=== PATIENT | female | born 1955 | race Caucasian/White ===

== ENCOUNTER 2019-10-21 13:12 | Emergency (ER) | payer OTHER, SELFPAY ==
[2019-10-21] VITALS (36 sets, daily range): BP systolic 132–174; BP diastolic 77–121; PULSE 58–101; RESP 13–22; TEMP 36.5; O2SAT 95–100
--- NOTE | 2019-10-21 13:43 | W.ED.GENAD ---
Discharge Plan Disposition Patient Disposition: HOME Condition: Stable Discharge Details Chief Complaint: Seizure Clinical Impression: Near syncope Primary Care Provider: Jazmyne Nowak ED Provider: Fernando Mcgill Home Meds and New Rx's Prescriptions: Continued melatonin 1 MG tablet 1 mg PO HS PRN PRNRF: 0 Discharge Instructions Instructions: Near Syncope (ED) Additional Instructions: Please wear Holter monitor as instructed by respiratory therapy. We have asked care management to arrange an outpatient follow-up for you in primary care clinic. As you discussed, you were offered admission to the hospital this evening, you may return at any time for reevaluation. Please do return should you develop chest pain, difficulty breathing, or any other acute concerns. Home to rest this evening. Medical Decision Making Pleasant and delightful 63-year-old female presents with her son. They they were visiting a family member the past 2 days. This morning after breakfast, the patient was noted to be making snoring sounds, turned red in the face, become briefly unresponsive for approximately 15 seconds with a slight tremulous shaking of both hands. There was no tonic-clonic motor activity, the patient did not turn blue, slumped, or fall to the floor. She awoke with slight nausea and mild diaphoresis. She did vomit once. Upon arrival her blood pressure is 165/96, pulse 77, vital signs otherwise normal. Neurologic exam is normal and without focal deficit. Differential diagnosis includes dehydration, vagal episode, arrhythmia, acute coronary syndrome. She is improved and I do not find any evidence of central neurologic dysfunction. Patient had IV access established, was placed on a monitor worker, received a fluid bolus, referred for chest x-ray, EKG, laboratory testing. Patient's diagnostic studies reveal an unremarkable CBC, chemistries with discrete anion gap of 12.9 but otherwise unremarkable, negative troponin, normal TSH. Repeat troponin obtained and negative Discussed and offered admission with the patient which she wishes to avoid. Therefore, I will place her on a 48-hour Holter monitor. We will ask care management to arrange an outpatient follow-up for her in clinic with Kimmy Weeks or Jazmyne Nowak. Patient understands indications to return for repeat evaluation. Lab Data Lab results reviewed: Yes I reviewed the patient's lab results. Labs: Laboratory Results - last 24 hr 10/21/19 10/21/19 10/21/19 13:20 13:20 14:06 WBC 9.10 RBC 4.90 Hgb 15.5 Hct 45.1 MCV 92.0 MCH 31.6 MCHC 34.4 RDW 13.0 Plt Count 249 MPV 10.0 Immature Gran % 0.1 Neutrophils % 78.0 Lymphocytes % 15.7 Monocytes % 5.8 Eosinophils % 0.3 Basophils % 0.1 Absolute Neutrophils 7.09 H Absolute Lymphocytes 1.43 Absolute Monocytes 0.53 Absolute Eosinophils 0.03 Absolute Basophils 0.01 Sodium Cancelled 143 Potassium Cancelled 4.2 Chloride Cancelled 105 Carbon Dioxide Cancelled 25.1 Anion Gap Cancelled 12.9 H BUN Cancelled 15 Creatinine Cancelled 0.68 Estimated GFR/1.73 m2 Cancelled >= 60.00 Glucose Cancelled 109 H Calcium Cancelled 9.0 Magnesium Cancelled 1.8 Total Bilirubin Cancelled 0.6 AST Cancelled 18 ALT Cancelled 37 Alkaline Phosphatase Cancelled 80 Troponin I Cancelled < 0.05 Total Protein Cancelled 7.4 Albumin Cancelled 3.9 TSH Cancelled 0.65 ECG Data Attestation: I personally reviewed and interpreted this ECG (s) as follows: Interpretation: Normal sinus rhythm, the QRS is narrow, the rate is 63, there is nonspecific ST segment changes in lead III, ectopic beats noted, no ST segment elevation. Repeat EKG at 1637 hrs. reveals normal sinus rhythm, rate of 67, QRS narrow, no ST segment elevation. HPI General Mode of arrival: ambulatory. Date/Time Provider Initiated Documentation: 10/21/19 13:15. Limitations to Documentation: no limitations. Information obtained by: patient and family. History of Present Illness 63 year old F presents to the emergency department with the chief complaint of Syncopal event, described as moderate and similar to prior episodes, Quality is described as other (States she feels normal), Patient started experiencing this hour(s) and it has been now resolved. No relieving factors improve symptom(s), No exacerbating factors reported . Patient notes loss of appetite and other (Vomited x1); denies chest pain, shortness of breath and weakness. Patient did receive the following treatments prior to arrival, none Related Data Home Medications Medication Instructions Recorded Confirmed melatonin 1 mg PO HS PRN PRN 01/09/17 10/21/19 Allergies Allergy/AdvReac Type Severity Reaction Status Date / Time Wasp Sting Allergy Severe Anaphylaxis Uncoded 10/21/19 13:24 General Stated Complaint: Seizure NELLI: 2 Review of Systems Narrative: Similar episode this past summer. Denies chest pain, palpitations, shortness of breath, lower extremity pain or swelling. No prolonged immobilization or travel. 8 systems reviewed and otherwise negative. 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 Pleasant, well groomed, interactive. HEAD: Normocephalic, atraumatic ENT: Mucous membranes moist, oropharynx unremarkable, External ear exam unremarkable EYES: PERRL, EOMI NECK: Full ROM, no DOMO, no menigismus CHEST/RESP: Nontender, clear to auscultation bilateral, no wheeze/rhonchi/rales CARDIOVASCULAR: RRR, no murmur, rub morgan. 2+ Rad pulse bilateral ABDOMEN: Soft, nontender, no mass. +Bowel sounds EXT: Full ROM, no edema, no rash Neuro: Grossly normal neurologic exam, conversant, interactive. Cranial nerves II through XII intact, [id number] intact, visual moeller intact to confrontation. Psych: Speech fluent, thoughts congruent, affect normal Course Vital Signs Vital signs: Vital Signs Temperature 36.5 C 10/21/19 13:12 Pulse 77 10/21/19 13:12 Respiratory Rate 16 10/21/19 13:12 Blood Pressure 165/96 H 10/21/19 13:12 Pulse Oximetry 100 10/21/19 13:12 Temperature 36.5 C 10/21/19 13:12 Temperature Source Skin 10/21/19 13:12 Pulse 77 10/21/19 13:12 Respiratory Rate 16 10/21/19 13:12 Respiratory Effort 10/21/19 13:24 Blood Pressure 165/96 H 10/21/19 13:12 Pulse Oximetry 100 10/21/19 13:12 Oxygen Delivery Method Room Air 10/21/19 13:12 Oxygen Flow Rate 0 10/21/19 13:12 Pain Level 0 10/21/19 13:12
[2019-10-21 13:54] LABS: Abs Immature Grans 0.01 k/cumm (0.0-0.09); Absolute Basophil Count 0.01 k/cumm (0.0-0.2); Absolute Eosinophil Count 0.03 k/cumm (0.0-0.7); Absolute Lymphocyte Count 1.43 k/cumm (1.2-3.4); Absolute Monocyte Count 0.53 k/cumm (0.11-0.7); Absolute Neutrophil Count 7.09 k/cumm (1.2-6.7); Basophils % 0.1; Eosinophils % 0.3; HCT 45.1 % (36.0-46.0); HGB 15.5 g/dL (12.0-15.5); Immature Grans % 0.1; Lymphocytes % 15.7; Mean Corp. HGB Concentration 34.4 g/dL (32.0-36.0); Mean Corpuscular Hemoglobin 31.6 pg (27.0-33.0); Monocytes % 5.8; Platelet Count 249 x1000/uL (130-400)
[2019-10-21] MEDS: Normal Saline 1,000 ML 1000 ML IV (13:54)
--- NOTE | 2019-10-21 14:20 | DI.CT_ITS ---
EXAM: CT HEAD WO CLINICAL HISTORY: syncope TECHNIQUE: NONCONTRAST COMPARISON: No exams were available for comparison FINDINGS: The ventricles and sulci are consistent with the patient's age. No acute intracranial hemorrhage, mi dline shift or mass effect is present. The ventricles are intact. The basilar cisterns are patent. The calvarium is intact. There is mucosal thickening in the maxillary sinuses, left greater than ri ght. The remaining visualized paranasal sinuses are clear. The mastoid air cells are well pneumatiz ed. IMPRESSION: No acute intracranial process. The findings were discussed with the Emergency Department on the date of the examination.
--- NOTE | 2019-10-21 14:27 | DI.RAD_ITS ---
EXAM: XR CHEST 2V PA LATERAL CLINICAL HISTORY: syncope. TECHNIQUE: 2D digital imaging was performed. COMPARISON: No exams were available for comparison FINDINGS: LUNGS: Clear. No pleural abnormality seen. HEART: Normal. MEDIASTINUM: Normal. OTHER FINDINGS:Normal. IMPRESSION: No acute pulmonary findings.
[2019-10-21 14:36] LABS: ALT 37 U/L (14-59); AST 18 U/L (15-37); Albumin 3.9 g/dL (3.4-5.0); Alkaline Phosphatase 80 U/L (46-116); Anion Gap 12.9 mmol/L (3-11); BUN 15 mg/dL (7-18); Bilirubin, Total 0.6 mg/dL (0.2-1.0); CO2 25.1 mmol/L (21.0-32.0); CREATININE 0.68 mg/dL (0.55-1.02); Chloride 105 mmol/L (98-107); Glucose 109 mg/dL (74-106); Magnesium 1.8 mg/dL (1.8-2.4); Potassium 4.2 mmol/L (3.5-5.1); Sodium 143 mmol/L (136-145); TSH 0.65 uIU/mL (0.36-3.74); Total Protein 7.4 g/dL (6.4-8.2)
[2019-10-21 14:39] LABS: Troponin I < 0.05 ng/Ml (<0.06)
[2019-10-21 16:52] LABS: Troponin I < 0.05 ng/Ml (<0.06)
--- NOTE | 2019-10-21 16:59 | NUR.NOTE ---
Referral faxed to [facility], Jazmyne Nowak.Nursing Note:
== END 2019-10-21 17:15 | disposition home or self-care (01) ==
PROVIDERS: Emergency Provider Emergency Medicine; PCP Nurse Practitioner
DX: R55 Syncope and collapse (principal); R11.2 Nausea with vomiting, unspecified
CPT/HCPCS: 36415; 36416; 80053; 82962; 93005; 96360; 96361; 99284; 70450; 71046; 83735; 84443; 84484; 85025; 93010; 93225

== ENCOUNTER 2019-10-22 11:18 | Inpatient (IN) | payer OTHER, SELFPAY ==
[2019-10-22] VITALS (23 sets, daily range): BP systolic 118–161; BP diastolic 57–102; PULSE 74–100; RESP 12–24; TEMP 36.5–37; O2SAT 96–99
[2019-10-22 12:30] LABS: Abs Immature Grans 0.01 k/cumm (0.0-0.09); Absolute Basophil Count 0.01 k/cumm (0.0-0.2); Absolute Eosinophil Count 0.04 k/cumm (0.0-0.7); Absolute Lymphocyte Count 1.47 k/cumm (1.2-3.4); Absolute Monocyte Count 0.69 k/cumm (0.11-0.7); Absolute Neutrophil Count 5.38 k/cumm (1.2-6.7); Basophils % 0.1; Eosinophils % 0.5; HCT 40.2 % (36.0-46.0); HGB 13.6 g/dL (12.0-15.5); Immature Grans % 0.1; Lymphocytes % 19.3; Mean Corp. HGB Concentration 33.8 g/dL (32.0-36.0); Mean Corpuscular Hemoglobin 31.1 pg (27.0-33.0); Mean Platelet Volume 9.8 fL (8.0-11.0); Monocytes % 9.1; Neutrophils % 70.9; Platelet Count 251 x1000/uL (130-400); RBC 4.37 m/cumm (4.00-5.20); RBC Distribution Width 12.8 % (11.7-14.6)
[2019-10-22] MEDS: Normal Saline 1,000 ML 1000 ML IV (12:33)
[2019-10-22 12:44] LABS: Bilirubin Negative (Negative); Blood Negative (Negative); Clarity Clear (Clear); Glucose Negative (Negative); Ketones Negative (Negative); Leukocyte Esterase Trace (Negative); Nitrite Negative (Negative); Urobilinogen 0.2 EU/dL (Up TO 0.2); pH 5.5 (5-8)
[2019-10-22 12:46] LABS: ALT 40 U/L (14-59); AST 20 U/L (15-37); Alkaline Phosphatase 78 U/L (46-116); Anion Gap 12.1 mmol/L (3-11); BUN 18 mg/dL (7-18); Bilirubin, Total 0.5 mg/dL (0.2-1.0); CO2 23.9 mmol/L (21.0-32.0); CREATININE 0.83 mg/dL (0.55-1.02); Calcium 9.1 mg/dL (8.5-10.1); Chloride 106 mmol/L (98-107); Glucose 113 mg/dL (74-106); Potassium 3.6 mmol/L (3.5-5.1); Sodium 142 mmol/L (136-145); Total Protein 7.3 g/dL (6.4-8.2)
[2019-10-22 12:47] LABS: Troponin I < 0.05 ng/Ml (<0.06)
[2019-10-22 12:55] LABS: Bacteria Few HPF (Negative); Crystals Negative HPF (Negative); Epithelial Cells Moderate HPF (Negative); RBC Negative HPF (0-2)
[2019-10-22 12:56] LABS: C & S Indicated? No/Sq. Contamination; Casts Negative LPF (Negative); Mucus Moderate (Negative)
--- NOTE | 2019-10-22 12:56 | DI.RAD_ITS ---
EXAM: XR CHEST 2V PA LATERAL XR CHEST 2V PA LATERAL CLINICAL HISTORY: syncope syncope TECHNIQUE: 2D digital imaging was performed. COMPARISON: XR CHEST 2V PA LATERAL from 10/21/2019 FINDINGS: The heart is not enlarged. The lungs are clear and well expanded. No pleural effusion seen. Mediastin al contours appear intact. IMPRESSION: Normal chest
--- NOTE | 2019-10-22 14:35 | W.HOLTRPT ---
Date of service: 10/22/19 Time of Service: 14:36 Holter Monitor Report Holter Monitor Note: The patient was monitored for 19 hours and 39 minutes Rhythm throughout was sinus. Average heart rate was 107 bpm Minimum heart rate was 72 and maximum 148 Heart rate during sleep averaged in the 80s Heart rate while awake ranged from 110-135 There were no atrial or ventricular dysrhythmias There were no bradycardia dysrhythmias or pauses
[2019-10-22 15:24] LABS: Troponin I < 0.05 ng/Ml (<0.06)
[2019-10-22 15:32] LABS: D-Dimer 589 ng/mlFEU (<500)
--- NOTE | 2019-10-22 17:59 | HPE_ITS ---
Date of service: 10/22/19 Time of Service: 18:02 Assessment and Plan Assessment and plan (1) Syncope: Status: Chronic Assessment and plan: Of unclear etiology. Yesterday while sitting, today while standing with sensation of nausea preceding. Tropoinin negative x2, third pending. TSH normal yesterday. Monitor on telemetry, echo ordered (will not be available over weekend), consider stress testing. PPI initiated. Reassess electrolytes tomorrow morning, Hgb A1c pending, lipid panel pending. (2) DVT prophylaxis: Status: Acute Assessment and plan: Subcutaneous heparin. (3) Discharge planning issues: Status: Acute Assessment and plan: She is a DNR/DNI. This case was discussed with Dr. Aldrich who is in agreement. History of Present Illness History of Present Illness Chief Complaint: Syncope Narrative: Alexia Borges is a very pleasant 63 year old female with a past medical history of osteoarthritis, varicose veins and one syncopal episode in 09/2018. She presented to the ED yesterday after she experienced a syncopal episode while sitting at her brother's house. She had her son drive her back to [facility] to the ED at that time. She vomited x1 during the ride to the ED. She was evaluated in the ED and had a CT head which was negative. She was offered admission, but chose to discharge home. She went back to her usual activities and presented to work this morning. She ate breakfast, drank plenty of water and was standing outside at [facility] when she suddenly felt like she needed to sit down and again experienced a syncopal episode. Both times, she was out for seconds, and awoke completely aware of her surroundings. There was no postictal state, no loss of urine, feces or tongue biting. She was wearing a holter monitor today as she was discharged with cardiac monitoring from the ED yesterday. The Holter report states that she was in NSR with rates 72 to a maximum of 148 bpm. It is not clear what her rate was when she passed out.. In the ED today, her labs were unremarkable. Her vital signs were unremarkable. Her chest x-ray was normal. Her troponin was negative x2, third troponin is pending. She is admitted to the [facility] floor for further observation and management. At the time of her admission, she denies any dizziness, presyncopal sensation, headaches, nausea, vomiting or diarrhea. She denies shortness of breath. She has had a dry cough this fall, no wheezing, chest pain/pressure. She has had intermittent palpitations long-term, no recent changes. She denies calf swelling or tenderness, lower extremity edema. She has been eating and drinking normally. No problems with bowel or bladder functioning. She smokes marijuana, 2 bowls per day, she drinks 2-4 alcoholic beverages per week. 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 Pleasant and cooperative, talkative. HEENT: normocephalic, atraumatic, pupils equal and round, EOMI, mucous membranes moist. Neck: supple, no JVD. Cardiovascular: heart has regular rate and rhythm, nontachycardic, no murmur appreciated. Respiratory: respirations even and unlabored, lung sounds clear bilaterally. Abdomen: normoactive bowel sounds, abdomen soft, nontender, nondistended. Extremities: no clubbing, cyanosis or edema. No calf swelling or tenderness. Results Labs Result diagrams: 10/22/19 11:47 10/22/19 11:47 Labs: Laboratory Results - last 24 hr 10/22/19 10/22/19 10/22/19 11:47 11:47 11:47 WBC 7.60 RBC 4.37 Hgb 13.6 Hct 40.2 MCV 92.0 MCH 31.1 MCHC 33.8 RDW 12.8 Plt Count 251 MPV 9.8 Immature Gran % 0.1 Neutrophils % 70.9 Lymphocytes % 19.3 Monocytes % 9.1 Eosinophils % 0.5 Basophils % 0.1 Absolute Neutrophils 5.38 Absolute Lymphocytes 1.47 Absolute Monocytes 0.69 Absolute Eosinophils 0.04 Absolute Basophils 0.01 D-Dimer 589 H Sodium 142 Potassium 3.6 Chloride 106 Carbon Dioxide 23.9 Anion Gap 12.1 H BUN 18 Creatinine 0.83 Estimated GFR/1.73 m2 >= 60.00 Glucose 113 H Calcium 9.1 Total Bilirubin 0.5 AST 20 ALT 40 Alkaline Phosphatase 78 Troponin I < 0.05 Total Protein 7.3 Albumin 4.0 Urine Color Urine Clarity Urine pH Ur Specific [place] Urine Protein Urine Ketones Urine Blood Urine Nitrite Urine Bilirubin Urine Urobilinogen Ur Leukocyte Esterase Urine RBC Urine WBC Ur Epithelial Cells Urine Crystals Urine Bacteria Urine Casts Urine Mucus Ur Culture Indicated? Urine Glucose 10/22/19 10/22/19 12:20 14:46 WBC RBC Hgb Hct MCV MCH MCHC RDW Plt Count MPV Immature Gran % Neutrophils % Lymphocytes % Monocytes % Eosinophils % Basophils % Absolute Neutrophils Absolute Lymphocytes Absolute Monocytes Absolute Eosinophils Absolute Basophils D-Dimer Sodium Potassium Chloride Carbon Dioxide Anion Gap BUN Creatinine Estimated GFR/1.73 m2 Glucose Calcium Total Bilirubin AST ALT Alkaline Phosphatase Troponin I < 0.05 Total Protein Albumin Urine Color Yellow Urine Clarity Clear Urine pH 5.5 Ur Specific [place] 1.020 Urine Protein Negative Urine Ketones Negative Urine Blood Negative Urine Nitrite Negative Urine Bilirubin Negative Urine Urobilinogen 0.2 Ur Leukocyte Esterase Trace H Urine RBC Negative Urine WBC 3-5 Ur Epithelial Cells Moderate Urine Crystals Negative Urine Bacteria Few Urine Casts Negative Urine Mucus Moderate Ur Culture Indicated? No/sq. contamination Urine Glucose Negative Last Vital Signs Temp 36.7 C 10/22/19 16:07 Pulse 83 10/22/19 16:15 Resp 16 10/22/19 16:07 BP 128/64 10/22/19 16:07 Pulse Ox 99 10/22/19 16:07
[2019-10-22] MEDS: Heparin 5,000 UNITS/ML VIAL 5000 UNITS SC ×2 (18:09→23:52)
[2019-10-22] MEDS: Normal Saline 1,000 ML 125 ML IV (18:24)
[2019-10-22] MEDS: Pantoprazole 40 MG VIAL IVP (18:25)
[2019-10-22] MEDS: Normal Saline Flush 10 ML SYR IVP (18:32)
[2019-10-22 18:35] LABS: Troponin I < 0.05 ng/Ml (<0.06)
[2019-10-22 20:52] LABS: *AMPHETAMINES SCREEN URINE Negative (Negative); *BARBITURATES SCREEN URINE Negative (Negative); *BENZODIAZEPINES SCREEN URINE Negative (Negative); Cannabinoids THC POSITIVE (Negative); Cocaine Screen,Urine Negative (Negative); METHADONE URINE SCREEN Negative (Negative); OPIATES URINE SCREEN Negative (Negative)
[2019-10-22 20:55] LABS: Tricyclic Antidepressants Negative (Negative)
[2019-10-23] VITALS (10 sets, daily range): BP systolic 128–158; BP diastolic 85–98; PULSE 69–95; RESP 17–18; TEMP 36.6–37.1; O2SAT 96–98
[2019-10-23] MEDS: Normal Saline 1,000 ML 125 ML IV ×3 (02:07→20:58)
[2019-10-23 07:23] LABS: Abs Immature Grans 0.01 k/cumm (0.0-0.09); Absolute Basophil Count 0.01 k/cumm (0.0-0.2); Absolute Eosinophil Count 0.07 k/cumm (0.0-0.7); Absolute Lymphocyte Count 1.59 k/cumm (1.2-3.4); Absolute Monocyte Count 0.35 k/cumm (0.11-0.7); Basophils % 0.2; Eosinophils % 1.6; HCT 37.6 % (36.0-46.0); HGB 12.6 g/dL (12.0-15.5); Immature Grans % 0.2; Lymphocytes % 36.7; Mean Corp. HGB Concentration 33.5 g/dL (32.0-36.0); Mean Corpuscular Hemoglobin 31.3 pg (27.0-33.0); Mean Corpuscular Volume 93.3 fL (80-95); Mean Platelet Volume 9.9 fL (8.0-11.0); Monocytes % 8.1; Neutrophils % 53.2; Platelet Count 205 x1000/uL (130-400); RBC 4.03 m/cumm (4.00-5.20); RBC Distribution Width 12.7 % (11.7-14.6); White Blood Cell Count 4.33 k/cumm (4.4-10.8)
[2019-10-23 07:35] LABS: Anion Gap 12.4 mmol/L (3-11); BUN 12 mg/dL (7-18); CO2 22.6 mmol/L (21.0-32.0); CREATININE 0.68 mg/dL (0.55-1.02); Calcium 8.3 mg/dL (8.5-10.1); Calculated LDL 151 mg/dL; Chloride 110 mmol/L (98-107); Cholesterol 207 mg/dL (<200); Glucose 84 mg/dL (74-106); HDL Cholesterol 39 mg/dL (40-60); Magnesium 1.7 mg/dL (1.8-2.4); Potassium 3.9 mmol/L (3.5-5.1); Sodium 145 mmol/L (136-145); Triglyceride 89 mg/dL (<150)
[2019-10-23] MEDS: Heparin 5,000 UNITS/ML VIAL 5000 UNITS SC ×3 (07:50→23:53)
[2019-10-23 08:02] LABS: Hemoglobin A1C 5.6 % (3.8-5.6)
[2019-10-23] MEDS: MAGNESIUM SULFATE 2 GM/50 ML BAG IVPB (09:50)
--- NOTE | 2019-10-23 10:17 | PHARADMIT ---
Admission Pharmacy Clinical Review Recurrent syncopal episode (Observation) Code Status DNR/DNI Current Weight 80.8 kg Renally Cleared and Narrow Therapeutic Index Meds CrCl~70ml/min QTc Value / Action Taken QTC 455 BP Control, Fever BP 151/94, HR 70's, Afebrile Electrolytes reviewed Mag 1.7 (2gram IV Mag x1), K+ 3.9 DVT Prophylaxis Heparin SC Opiate Usage / Scheduled Bowel Regimen Ordered none Plt/SCr for Heparin / Enoxaparin Plt 205 SCr 0.68 INR for Warfarin H/H stable, WBC/Bands H/H 12.6/37.6 WBC 4.33 Antibiotic appropriateness none Cultures and Sensitivities Flu negative Surgical ABX d/c within 24 hr DM control / Insulin Dosing A1c 5.6 BG 84 Heart Failure (Check EF%) (MARYSOL's, B-Block, Diuretics) none IV to PO Switch Home Meds Reviewed Home Meds Not Ordered Melatonin Comments Echo ordered, head CT negative, was seen previously in the ED troponin negative, Holter monitor
--- NOTE | 2019-10-23 11:21 | DI.CT_ITS ---
EXAM: CT BRAIN NECK CTA CLINICAL HISTORY: syncope TECHNIQUE: Axial CT angiography was performed with multi-slice acquisition and multi-planar and/or 3 D reconstructions. 85 cc's of Omnipaque 350 was utilized. COMPARISON: No exams were available for comparison FINDINGS: CT brain: Ventricles and sulci are consistent with the patient's age. No acute intracranial hemorrhage, midlin e shift or mass effect is present. The ventricles are intact. The basilar cisterns are patent. The re is mild mucosal thickening in the left maxillary sinus. No fluid levels are seen. The mastoid ai r cells are well pneumatized. The calvarium is intact. CT angiography of the head: Internal carotid arteries: There is calcification seen in the wall. No significant stenosis, occlusi on or aneurysm. Anterior cerebral arteries: No evidence of occlusion, aneurysm or significant stenosis. Middle cerebral arteries: No evidence of occlusion, aneurysm or significant stenosis. Posterior cerebral arteries: No evidence of occlusion, aneurysm or significant stenosis. Basilar artery: No evidence of occlusion, aneurysm or significant stenosis. Vertebral arteries: No evidence of occlusion, aneurysm or significant stenosis. CT angiography of the neck: Carotid arteries: No evidence of dissection, occlusion or significant stenosis. Internal carotid arteries: Calcification in the proximal internal carotid arteries. No evidence of d issection, occlusion or significant stenosis. Tortuous. External carotid arteries: No evidence of occlusion or significant stenosis. Vertebral arteries: No evidence of occlusion, dissection or significant stenosis. Tortuous. Degenerative changes are seen in the cervical spine. There is grade 1 anterolisthesis of C2 on C3. There is a 1.1 cm x 0.8 cm x 1.0 cm nodule in the lateral aspect of the right parotid gland. The lung apices are clear. IMPRESSION: 1. No acute intracranial process. 2. No evidence of occlusion or significant stenosis. 3. Right parotid gland nodule. 4. Degenerative changes in the cervical spine with grade 1 anterolisthesis of C2 on C3.
[2019-10-23] MEDS: Omnipaque 350 MG/ML 100 ML BTL 85 ML IJ (11:41)
--- NOTE | 2019-10-23 12:06 | W.PM.PROGNOT ---
Date of Service Date of service: 10/23/19 Time of Service: 12:06 Assessment and Plan Assessment and plan (1) Syncope: Start date: 10/23/19 Start time: 12:09 Status: Chronic Assessment and plan: Of unclear etiology. 4th episode in [address] head with no acute abnormality. Holter monitor with HR as high as 140's unclear if related to syncope. CTA head and neck pending. Echo for tomorrow. Consider stress if negative. Asa started. Total cholesterol elevated started on atorvastatin 20 mg daily (2) DVT prophylaxis: Start date: 10/23/19 Start time: 12:11 Status: Acute Assessment and plan: Subcutaneous heparin. (3) Discharge planning issues: Start date: 10/23/19 Start time: 12:11 Status: Acute Assessment and plan: She is a DNR/DNI. Home after discharge This case was discussed with Dr. Butler who is in agreement. Subjective Subjective Patient reports: no new complaints Interval history since last seen: Feels great no dizziness or pain. No syncopal episodes overnight. 4th episode of syncope in 2 years. Telemetry with elevated HR up to 120's no sustained, otherwise RRR. CTA head and neck pending. Lipid panel with elevated cholesterol started on atrovastatin. Exam Narrative Exam Narrative: General: appears stated age, awake, alert and oriented. Pleasant and cooperative, talkative. HEENT: normocephalic, atraumatic, pupils equal and round, EOMI, mucous membranes moist. Neck: supple, no JVD. Cardiovascular: heart has regular rate and rhythm, no murmur appreciated. Respiratory: respirations even and unlabored, lung sounds clear bilaterally. Abdomen: normoactive bowel sounds, abdomen soft, nontender, nondistended. Extremities: no clubbing, cyanosis or edema. No calf swelling or tenderness. Objective Objective Clinical Data: Abnormal lab results 10/22/19 10/22/19 10/22/19 Range/Units 11:47 11:47 12:20 WBC (4.4-10.8) k/cumm D-Dimer 589 H (<500) ng/mlFEU Chloride (98-107) mmol/L Anion Gap 12.1 H (3-11) mmol/L Glucose 113 H (74-106) mg/dL Calcium (8.5-10.1) mg/dL Magnesium (1.8-2.4) mg/dL HDL Cholesterol (40-60) mg/dL Ur Leukocyte Esterase Trace H (Negative) Ur THC Screen (Negative) 10/22/19 10/23/19 10/23/19 Range/Units 12:20 06:25 06:25 WBC 4.33 L D (4.4-10.8) k/cumm D-Dimer (<500) ng/mlFEU Chloride 110 H (98-107) mmol/L Anion Gap 12.4 H (3-11) mmol/L Glucose (74-106) mg/dL Calcium 8.3 L (8.5-10.1) mg/dL Magnesium 1.7 L (1.8-2.4) mg/dL HDL Cholesterol 39 L (40-60) mg/dL Ur Leukocyte Esterase (Negative) Ur THC Screen Positive A (Negative) Vital Signs Temperature 37.1 C 10/23/19 07:36 Temperature Source Tympanic 10/23/19 07:36 Pulse 81 10/23/19 12:00 Pulse Rhythm Irregular 10/23/19 08:00 Pulse 96 H 10/22/19 15:15 Respiratory Rate 17 10/23/19 07:36 Respiratory Effort 10/23/19 08:00 Respiratory Depth Normal 10/23/19 08:00 Respiratory Pattern Normal 10/23/19 08:00 Blood Pressure 151/94 H 10/23/19 07:36 Blood Pressure Mean 101 10/22/19 15:15 Blood Pressure Position Sitting 10/22/19 11:28 Pulse Oximetry 98 10/23/19 07:36 Oxygen Delivery Method Room Air 10/23/19 07:36 Oxygen Flow Rate 0 10/23/19 07:36 Pain Level 0 10/23/19 07:36 Intake & Output 10/22/19 10/23/19 10/23/19 23:59 11:59 23:59 Intake Total 1000 / 1010 1804.583 / 1804.583 Output Total 250 / 250 200 / 200 Balance 750 / 760 1604.583 / 1604.583 Weight 79.379 kg 80.8 kg Intake: IV 1000 / 1010 964.583 / 964.583 Oral 840 / 840 Output: Urine 250 / 250 200 / 200 Other: Urine Color Yellow Yellow Urine Appearance Clear Cloudy Urine Odor None Comment VOID X 1 REPORTED BY PATIENT Voiding Methods Toilet Laboratory Results WBC 4.33 k/cumm (4.4-10.8) L D 10/23/19 06:25 RBC 4.03 m/cumm (4.00-5.20) 10/23/19 06:25 Hgb 12.6 g/dL (12.0-15.5) 10/23/19 06:25 Hct 37.6 % (36.0-46.0) 10/23/19 06:25 MCV 93.3 fL (80-95) 10/23/19 06:25 MCH 31.3 pg (27.0-33.0) 10/23/19 06:25 MCHC 33.5 g/dL (32.0-36.0) 10/23/19 06:25 RDW 12.7 % (11.7-14.6) 10/23/19 06:25 Plt Count 205 x1000/uL (130-400) 10/23/19 06:25 MPV 9.9 fL (8.0-11.0) 10/23/19 06:25 Immature Gran % 0.2 10/23/19 06:25 Neutrophils % 53.2 10/23/19 06:25 Lymphocytes % 36.7 10/23/19 06:25 Monocytes % 8.1 10/23/19 06:25 Eosinophils % 1.6 10/23/19 06:25 Basophils % 0.2 10/23/19 06:25 Absolute Neutrophils 2.30 k/cumm (1.2-6.7) 10/23/19 06:25 Absolute Lymphocytes 1.59 k/cumm (1.2-3.4) 10/23/19 06:25 Absolute Monocytes 0.35 k/cumm (0.11-0.7) 10/23/19 06:25 Absolute Eosinophils 0.07 k/cumm (0.0-0.7) 10/23/19 06:25 Absolute Basophils 0.01 k/cumm (0.0-0.2) 10/23/19 06:25 D-Dimer 589 ng/mlFEU (<500) H 10/22/19 11:47 Sodium 145 mmol/L (136-145) 10/23/19 06:25 Potassium 3.9 mmol/L (3.5-5.1) 10/23/19 06:25 Chloride 110 mmol/L (98-107) H 10/23/19 06:25 Carbon Dioxide 22.6 mmol/L (21.0-32.0) 10/23/19 06:25 Anion Gap 12.4 mmol/L (3-11) H 10/23/19 06:25 BUN 12 mg/dL (7-18) D 10/23/19 06:25 Creatinine 0.68 mg/dL (0.55-1.02) 10/23/19 06:25 Estimated GFR/1.73 m2 >= 60.00 (mL/min/1.73m2) 10/23/19 06:25 Glucose 84 mg/dL (74-106) 10/23/19 06:25 Hemoglobin A1c 5.6 % (3.8-5.6) 10/23/19 06:25 Calcium 8.3 mg/dL (8.5-10.1) L 10/23/19 06:25 Magnesium 1.7 mg/dL (1.8-2.4) L 10/23/19 06:25 Total Bilirubin 0.5 mg/dL (0.2-1.0) 10/22/19 11:47 AST 20 U/L (15-37) 10/22/19 11:47 ALT 40 U/L (14-59) 10/22/19 11:47 Alkaline Phosphatase 78 U/L (46-116) 10/22/19 11:47 Troponin I < 0.05 ng/Ml (<0.06) 10/22/19 18:05 Total Protein 7.3 g/dL (6.4-8.2) 10/22/19 11:47 Albumin 4.0 g/dL (3.4-5.0) 10/22/19 11:47 Triglycerides 89 mg/dL (<150) 10/23/19 06:25 Total Cholesterol 207 mg/dL (<200) 10/23/19 06:25 LDL Cholesterol, Calc 151 mg/dL 10/23/19 06:25 HDL Cholesterol 39 mg/dL (40-60) L 10/23/19 06:25 Urine Color Yellow (Yellow) 10/22/19 12:20 Urine Clarity Clear (Clear) 10/22/19 12:20 Urine pH 5.5 (5-8) 10/22/19 12:20 Ur Specific [place] 1.020 (1.005-1.025) 10/22/19 12:20 Urine Protein Negative mg/dL (Negative) 10/22/19 12:20 Urine Ketones Negative mg/dL (Negative) 10/22/19 12:20 Urine Blood Negative (Negative) 10/22/19 12:20 Urine Nitrite Negative (Negative) 10/22/19 12:20 Urine Bilirubin Negative (Negative) 10/22/19 12:20 Urine Urobilinogen 0.2 EU/dL (Up TO 0.2) 10/22/19 12:20 Ur Leukocyte Esterase Trace (Negative) H 10/22/19 12:20 Urine RBC Negative HPF (0-2) 10/22/19 12:20 Urine WBC 3-5 HPF (0-5) 10/22/19 12:20 Ur Epithelial Cells Moderate HPF (Negative) 10/22/19 12:20 Urine Crystals Negative HPF (Negative) 10/22/19 12:20 Urine Bacteria Few HPF (Negative) 10/22/19 12:20 Urine Casts Negative LPF (Negative) 10/22/19 12:20 Urine Mucus Moderate (Negative) 10/22/19 12:20 Ur Culture Indicated? No/sq. contamination 10/22/19 12:20 Urine Glucose Negative mg/dL (Negative) 10/22/19 12:20 Urine Opiates Screen Negative (Negative) 10/22/19 12:20 Urine Methadone Screen Negative (Negative) 10/22/19 12:20 Ur Barbiturates Screen Negative (Negative) 10/22/19 12:20 Ur Tricyclics Screen Negative (Negative) 10/22/19 12:20 Ur Amphetamines Screen Negative (Negative) 10/22/19 12:20 U Benzodiazepines Scrn Negative (Negative) 10/22/19 12:20 Urine Cocaine Screen Negative (Negative) 10/22/19 12:20 Ur THC Screen Positive (Negative) A 10/22/19 12:20
--- NOTE | 2019-10-23 13:19 | DI.VRAD_ITS ---
PROCEDURE INFORMATION: Exam: CT Angiography Head Without And With Contrast Exam date and time: 10/23/2019 10:03 AM Age: 63 years old Clinical indication: Syncope and collapse TECHNIQUE: Imaging protocol: Computed tomographic angiography of the head without and with intravenous contrast. 3D rendering: MIP and/or 3D reconstructed images were created by the technologist. COMPARISON: CT HEAD WO 10/21/2019 2:20 PM FINDINGS: Right internal carotid artery: Calcifications along the wall of the intracranial portions of the right internal carotid artery without significant stenosis. No aneurysm. Right anterior cerebral artery: Unremarkable. No occlusion or significant stenosis. No aneurysm. Right middle cerebral artery: Unremarkable. No occlusion or significant stenosis. No aneurysm. Right posterior cerebral artery: Unremarkable. No occlusion or significant stenosis. No aneurysm. Right vertebral artery: Unremarkable. No occlusion or significant stenosis. No aneurysm. Left internal carotid artery: Calcifications along the wall of the intracranial portions of the left internal carotid artery without significant stenosis. No aneurysm. Left anterior cerebral artery: Unremarkable. No occlusion or significant stenosis. No aneurysm. Left middle cerebral artery: Unremarkable. No occlusion or significant stenosis. No aneurysm. Left posterior cerebral artery: Unremarkable. No occlusion or significant stenosis. No aneurysm. Left vertebral artery: Unremarkable. No occlusion or significant stenosis. No aneurysm. Basilar artery: Unremarkable. No occlusion or significant stenosis. No aneurysm. HEAD: Brain: Is mild age-related atrophy. No hemorrhage. No significant white matter disease. No edema. No evidence of acute territorial infarction. Ventricles: Normal. No ventriculomegaly. Bones/joints: Unremarkable. No acute fracture. Sinuses: Mild mucosal thickening in the left maxillary sinus. No fluid levels. Mastoid air cells: Visualized mastoids are normal. No mastoid effusion. Soft tissues: Unremarkable. IMPRESSION: Negative CTA head exam. No stenosis or occlusion. PROCEDURE INFORMATION: Exam: CT Angiography Neck With Contrast Exam date and time: 10/23/2019 10:03 AM Age: 63 years old Clinical indication: Syncope and collapse TECHNIQUE: Imaging protocol: Computed tomography angiography of the neck with intravenous contrast. 3D rendering: MIP and/or 3D reconstructed images were created by the technologist. COMPARISON: CT HEAD WO 10/21/2019 2:20 PM FINDINGS: VASCULATURE: Right common carotid artery: Unremarkable. No significant stenosis. No dissection or occlusion. Right internal carotid artery: Calcifications at the proximal right internal carotid artery without stenosis. No dissection or occlusion. Very tortuous distal right internal carotid artery just below the skull base. Right external carotid artery: Unremarkable. No occlusion or significant stenosis. Right vertebral artery: Tortuous. No significant stenosis. No dissection or occlusion. Left common carotid artery: Unremarkable. No significant stenosis. No dissection or occlusion. Left internal carotid artery: Calcifications of the proximal left internal carotid artery without stenosis. No dissection or occlusion. Very tortuous distal left internal carotid artery just below the skull base. Left external carotid artery: Unremarkable. No occlusion or significant stenosis. Left vertebral artery: Tortuous. No significant stenosis. No dissection or occlusion. NECK: Submandibular/Parotid glands: 11 mm x 8 mm x 10 mm dense nodule in the lateral aspect of the right parotid gland. Bones/joints: No acute fracture. Multilevel degenerative changes. Mild, grade 1 anterolisthesis of C2 relative to C3 (sagittal series 18 image 34) with asymmetric facet hypertrophy. Soft tissues: Unremarkable. No significant soft tissue swelling. IMPRESSION: 1. No stenosis or occlusion. 2. Tortuous cervical arteries which may correlate with chronic hypertension. 3. Mild, grade 1, anterolisthesis of C2 relative to C3. This is nonspecific but may be degenerative as there is asymmetric facet hypertrophy at this level. 4. Right parotid gland nodule. COMMENT: Reference per NASCET criteria for degree of stenosis: Mild: less than 50% stenosis. Moderate: 50-69% stenosis. Severe: 70-94% stenosis. Near occlusion: 95-99% stenosis. Dictated and Authenticated by: Mayi Weinberg MD. Ordering:BARRETT Oneal MD
--- NOTE | 2019-10-23 16:42 | INITIAL_ITS ---
- If Service Date Differs Date of service: 10/23/19 Time of Service: 16:42 Care Management Initial Assess REASON FOR HOSPITALIZATION:: Recurrent Syncopal Events PAST MEDICAL HISTORY/PAST SURGICAL HISTORY:: Medical History. Varicose vein of leg. Surgical History. Arthroscopy. Fracture of Pelvis. Meniscus Cleaned Out (L)Knee. Replacement of total knee joint. right PREVIOUS FUNCTIONAL STATUS/SOCIAL/FAMILY SUPPORTS:: Alexia lives alone in [place], [place]. 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 She moved to this area a few years ago from [place], [place], where her adult son currently lives. She is independent with her ADL's and reports being very healthy and active. CURRENT FUNCTIONAL STATUS:: Alexia was sitting up in her bed when CM met with her. She was very pleasant and engaged in conversation. She stated that she feels great, but is hoping to identify the reason for her recent occurrances of loss of consciousness. She also expressed concern regarding the bill that is accruing as she has had multiple tests and may have to stay overnight for monitoring. CM provided a patient assistance packet for her to fill out that may help alleviate some of the cost. CM will continue to follow and support Alexia with discharge planning. ADVANCE DIRECTIVES:: On file, Elfego Borges (son) listed as agent. Has patient been provided with information about the portal?: Yes Did the patient sign up for the portal?: Yes (already signed up) CODE STATUS:: DNR/DNI INSURANCE COVERAGE / FINANCIAL ISSUES:: [facility] CURRENT HOME/COMMUNITY SERVICES/EQUIPMENT:: Alexia currently does not have any services or equipment. PRIMARY CARE PHYSICIAN:: Jazmyne Nowak POTENTIAL DISCHARGE NEEDS:: Evalutation for further needs, follow up appointments PATIENT/FAMILY EDUCATION NEEDS:: Review discharge instructions, discussion of self care needs including Ask Me Three ANTICIPATED BARRIERS TO DISCHARGE:: None identified at this time. TRANSPORTATION:: Alexia's friends will transport her home via private vehicle. PLAN:: Anticipate Alexia will return home when medically cleared with no additional services. She will follow up with her PCP, as recommended. Her friends will drive her home via private vehicle when ready.
[2019-10-23] MEDS: Pantoprazole 40 MG VIAL IVP (19:09)
[2019-10-23] MEDS: Atorvastatin 20 MG TAB PO (19:09)
[2019-10-23] MEDS: Normal Saline Flush 10 ML SYR IVP (19:09)
--- NOTE | 2019-10-23 21:20 | W.ED.GENAD ---
Discharge Plan Discharge Details Chief Complaint: Dizzy/Sync Admit Date/Time: 10/22/19 14:38 Admit Provider: Myra Aldrich Attending Provider: Myra Aldrich Primary Care Provider: Jazmyne Nowak ED Provider: Jodie Clarke Discharge Data Discharge Date/Time-TO BE ENTERED AT DEPARTURE: 10/22/19 15:53 Medical Decision Making Is a 63-year-old patient today while standing. Patient reports she had a syncopal episode yesterday was seen in the emergency room and had a thorough evaluation. Evaluation in the emergency room yesterday was unremarkable for any acute findings. Holter monitor was placed and patient was ultimately discharged home. Patient reports she felt well this morning, ate a adequate breakfast, drink plenty of fluids was at her baseline. 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 Patient ports is very similar to the episode she had yesterday. She returns to the emergency room to consent for admission which was offered to her yesterday. Patient is feeling well at this time. Patient denies any subsequent nausea, vomiting, ill feeling or dizziness. Reports a steady gait. Denies palpitations or chest pain. Patient was wearing the Holter monitor provided to her yesterday during the episode of syncope. Patient noted the time to be 10:00 AM. Labs again drawn, EKG obtained. Patient's labs reveal no significant leukocytosis. No significant CMP abnormalities. Troponin negative. EKG reveals heart rate of 91 sinus rhythm, low voltage. No specific ST segment changes. Reviewed with Chanel Romero. Discussed with patient who does consent for admission at this time. Discussed with hospitalist. Recommends have respiratory therapy access the Holter monitor prior to admission. Also requested orthostatics. No significant orthostatic changes noted Holter monitor accessed by respiratory with no obvious rhythm changes during the reported episode. At this time the hospitalist will accept patient for admission. HPI General Date/Time Provider Initiated Documentation: 10/22/19 11:51. HPI Narrative: This is a 63-year-old patient who presents to the emergency room for syncopal episode which occurred today while she was at a ski line up for ski instruction. Patient reports that she was seen in the emergency room yesterday for syncopal episode which occurred. She had a thorough evaluation in the emergency room and was offered admission but declined at that time as she was feeling improved. Patient reports she felt well this morning ate breakfast drink plenty of fluids had normal amounts of energy is a production ski repairer [place] [employer] got her class [place] and was standing at the [place] of the mall and then all of a sudden felt funny for a brief period of time then found herself waking on the ground. Patient at this time is requesting admission to the hospital which she declined yesterday. Patient again feels well at this time. She declined subsequent fatigue, nausea or vomiting. Patient denies drug or alcohol use. Has no other concerns or complaints. Patient denies any palpitations. Of note patient was wearing a Holter monitor during the episode of syncope which occurred today. Holter monitor placed yesterday after ER evaluation. Related Data Home Medications Medication Instructions Recorded Confirmed melatonin 1 mg PO HS PRN PRN 01/09/17 10/22/19 Allergies Allergy/AdvReac Type Severity Reaction Status Date / Time Wasp Sting Allergy Severe Anaphylaxis Uncoded 10/22/19 11:32 General Stated Complaint: Dizzy/Sync NELLI: 3 Review of Systems All systems reviewed & are unremarkable except as noted in HPI and below Constitutional Constitutional: Denies chills, Denies fatigue, Denies fever(s), Denies headache(s) and Denies malaise Eyes Eyes: Denies blurry vision and Denies change in vision ENT Ears, Nose, Mouth, and Throat: Denies vertigo, Denies dizziness and Denies headache(s) Cardiovascular Cardiovascular: Denies chest pain, Denies chest pain with activity, Denies diaphoresis, Reports syncope, Denies rapid heart rate, Denies irregular heart rhythm, Denies leg edema, Denies lightheadedness, Denies radiating jaw, neck or arm pain, Denies dyspnea and Denies dyspnea on exertion Respiratory Respiratory: Denies chest congestion, Denies cough, Denies dyspnea and Denies dyspnea on exertion Gastrointestinal Gastrointestinal: Denies abdominal pain, Denies nausea and Denies vomiting Genitourinary Genitourinary: Denies dysuria Musculoskeletal Musculoskeletal: Denies abnormal gait, Denies numbness and Denies tingling Neurologic Neurologic: Denies abnormal speech, Denies abnormal gait, Denies vertigo, Denies dizziness, Reports syncope, Denies headache(s), Denies focal weakness, Denies numbness and Denies tingling Endocrine Endocrine: Denies fatigue [facility] Medical History Varicose vein of leg Surgical History Arthroscopy Fracture of Pelvis Meniscus Cleaned Out (L)Knee Replacement of total knee joint right Social History Smoking/Tobacco Use Status: Never Alcohol Intake: current Alcohol Intake frequency: a few times a month Alcohol type: beer Drug use: Occasionally Substance use type: marijuana Housing: house 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 Well hydrated. Alert and alert. HENMT: Head nomocephalic, normal to inspection. Atraumatic. Hearing grossly normal. External ear canal no erythema or swelling. TM normal bilaterally. Nose normal to inspection. No rhinnorhea. Normal facial exam. Oral mucosa normal. Tounge normal. Dentition normal. Normal posterior oropharynx. Uvula midline. EYES: General normal appearance. Alignment normal. Eyelids normal. Conjunctiva normal. Sclera normal. PERRL. NECK: Normal visual inspection. FROM. No lymphadenopathy. Trachea midline. No Midline tenderness. CHEST: Normal insepection of the chest. RESP: Normal respiratory effort. Speaking full sentences. No cough. No wheezing. No retractions. Clear to auscaltation. Breath sound equal and present bilaterally. CARDIO: No JVD. Normal PMI. Regular Rate. Regular Rhythm. Normal peripheral pulses. GI: Normal inspection of abdomen. No distension. Soft. Nontender. Bowel sounds present in all 4 quadrants. No rebound. No gaurding. SKIN: Normal. Dry. No rashes. NEURO: Alert and awake. Speech clear. PSYCH: Normal affect. Cooperative. Course Vital Signs Vital signs: Vital Signs Temperature 36.5 C 10/22/19 11:28 Pulse 96 H 10/22/19 11:28 Respiratory Rate 20 10/22/19 11:28 Blood Pressure 129/57 L 10/22/19 11:28 Pulse Oximetry 97 10/22/19 11:28 Temperature 36.6 C 10/23/19 19:55 Temperature Source Skin 10/23/19 19:55 Pulse 82 10/23/19 19:55 Pulse Rhythm Regular 10/23/19 16:20 Pulse 96 H 10/22/19 15:15 Respiratory Rate 17 10/23/19 19:55 Respiratory Effort 10/23/19 16:20 Respiratory Depth Normal 10/23/19 16:20 Respiratory Pattern Normal 10/23/19 16:20 Blood Pressure 142/94 H 10/23/19 20:17 Blood Pressure Mean 101 10/22/19 15:15 Blood Pressure Position Sitting 10/22/19 11:28 Pulse Oximetry 97 10/23/19 19:55 Oxygen Delivery Method Room Air 10/23/19 19:55 Oxygen Flow Rate 0 10/23/19 19:55 Pain Level 0 10/23/19 19:55 Lab/Test Results Lab/Test Results: 10/22/19 12:30 Nasopharynx Influenza Types A,B Antigen - Final Laboratory Tests Range/Units 10/22/19 10/22/19 10/22/19 11:47 11:47 11:47 WBC (4.4-10.8) k/cumm 7.60 RBC (4.00-5.20) m/cumm 4.37 Hgb (12.0-15.5) g/dL 13.6 Hct (36.0-46.0) % 40.2 MCV (80-95) fL 92.0 MCH (27.0-33.0) pg 31.1 MCHC (32.0-36.0) g/dL 33.8 RDW (11.7-14.6) % 12.8 Plt Count (130-400) x1000/uL 251 MPV (8.0-11.0) fL 9.8 Immature Gran % 0.1 Neutrophils % 70.9 Lymphocytes % 19.3 Monocytes % 9.1 Eosinophils % 0.5 Basophils % 0.1 Absolute Neutrophils (1.2-6.7) k/cumm 5.38 Absolute Lymphocytes (1.2-3.4) k/cumm 1.47 Absolute Monocytes (0.11-0.7) k/cumm 0.69 Absolute Eosinophils (0.0-0.7) k/cumm 0.04 Absolute Basophils (0.0-0.2) k/cumm 0.01 D-Dimer (<500) ng/mlFEU 589 H Sodium (136-145) mmol/L 142 Potassium (3.5-5.1) mmol/L 3.6 Chloride (98-107) mmol/L 106 Carbon Dioxide (21.0-32.0) mmol/L 23.9 Anion Gap (3-11) mmol/L 12.1 H BUN (7-18) mg/dL 18 Creatinine (0.55-1.02) mg/dL 0.83 Estimated GFR/1.73 m2 (mL/min/1.73m2) >= 60.00 Glucose (74-106) mg/dL 113 H Calcium (8.5-10.1) mg/dL 9.1 Total Bilirubin (0.2-1.0) mg/dL 0.5 AST (15-37) U/L 20 ALT (14-59) U/L 40 Alkaline Phosphatase (46-116) U/L 78 Troponin I (<0.06) ng/Ml < 0.05 Total Protein (6.4-8.2) g/dL 7.3 Albumin (3.4-5.0) g/dL 4.0 Urine Color (Yellow) Urine Clarity (Clear) Urine pH (5-8) Ur Specific [place] (1.005-1.025) Urine Protein (Negative) mg/dL Urine Ketones (Negative) mg/dL Urine Blood (Negative) Urine Nitrite (Negative) Urine Bilirubin (Negative) Urine Urobilinogen (Up TO 0.2) EU/dL Ur Leukocyte Esterase (Negative) Urine RBC (0-2) HPF Urine WBC (0-5) HPF Ur Epithelial Cells (Negative) HPF Urine Crystals (Negative) HPF Urine Bacteria (Negative) HPF Urine Casts (Negative) LPF Urine Mucus (Negative) Ur Culture Indicated? Urine Glucose (Negative) mg/dL Urine Opiates Screen (Negative) Urine Methadone Screen (Negative) Ur Barbiturates Screen (Negative) Ur Tricyclics Screen (Negative) Ur Amphetamines Screen (Negative) U Benzodiazepines Scrn (Negative) Urine Cocaine Screen (Negative) Ur THC Screen (Negative) Range/Units 10/22/19 10/22/19 12:20 12:20 WBC (4.4-10.8) k/cumm RBC (4.00-5.20) m/cumm Hgb (12.0-15.5) g/dL Hct (36.0-46.0) % MCV (80-95) fL MCH (27.0-33.0) pg MCHC (32.0-36.0) g/dL RDW (11.7-14.6) % Plt Count (130-400) x1000/uL MPV (8.0-11.0) fL Immature Gran % Neutrophils % Lymphocytes % Monocytes % Eosinophils % Basophils % Absolute Neutrophils (1.2-6.7) k/cumm Absolute Lymphocytes (1.2-3.4) k/cumm Absolute Monocytes (0.11-0.7) k/cumm Absolute Eosinophils (0.0-0.7) k/cumm Absolute Basophils (0.0-0.2) k/cumm D-Dimer (<500) ng/mlFEU Sodium (136-145) mmol/L Potassium (3.5-5.1) mmol/L Chloride (98-107) mmol/L Carbon Dioxide (21.0-32.0) mmol/L Anion Gap (3-11) mmol/L BUN (7-18) mg/dL Creatinine (0.55-1.02) mg/dL Estimated GFR/1.73 m2 (mL/min/1.73m2) Glucose (74-106) mg/dL Calcium (8.5-10.1) mg/dL Total Bilirubin (0.2-1.0) mg/dL AST (15-37) U/L ALT (14-59) U/L Alkaline Phosphatase (46-116) U/L Troponin I (<0.06) ng/Ml Total Protein (6.4-8.2) g/dL Albumin (3.4-5.0) g/dL Urine Color (Yellow) Yellow Urine Clarity (Clear) Clear Urine pH (5-8) 5.5 Ur Specific [place] (1.005-1.025) 1.020 Urine Protein (Negative) mg/dL Negative Urine Ketones (Negative) mg/dL Negative Urine Blood (Negative) Negative Urine Nitrite (Negative) Negative Urine Bilirubin (Negative) Negative Urine Urobilinogen (Up TO 0.2) EU/dL 0.2 Ur Leukocyte Esterase (Negative) Trace H Urine RBC (0-2) HPF Negative Urine WBC (0-5) HPF 3-5 Ur Epithelial Cells (Negative) HPF Moderate Urine Crystals (Negative) HPF Negative Urine Bacteria (Negative) HPF Few Urine Casts (Negative) LPF Negative Urine Mucus (Negative) Moderate Ur Culture Indicated? No/sq. contamination Urine Glucose (Negative) mg/dL Negative Urine Opiates Screen (Negative) Negative Urine Methadone Screen (Negative) Negative Ur Barbiturates Screen (Negative) Negative Ur Tricyclics Screen (Negative) Negative Ur Amphetamines Screen (Negative) Negative U Benzodiazepines Scrn (Negative) Negative Urine Cocaine Screen (Negative) Negative Ur THC Screen (Negative) Positive A
[2019-10-24 04:03] VITALS: BP 152/78; PULSE 69; RESP 17; TEMP 36.7; O2SAT 98
[2019-10-24] MEDS: Normal Saline 1,000 ML 125 ML IV (05:02)
[2019-10-24 06:53] LABS: HCT 38.2 % (36.0-46.0); Mean Corpuscular Hemoglobin 31.6 pg (27.0-33.0); Mean Corpuscular Volume 92.7 fL (80-95); Mean Platelet Volume 9.7 fL (8.0-11.0); Platelet Count 188 x1000/uL (130-400); RBC 4.12 m/cumm (4.00-5.20); RBC Distribution Width 12.7 % (11.7-14.6); White Blood Cell Count 4.34 k/cumm (4.4-10.8)
[2019-10-24 07:04] LABS: BUN 9 mg/dL (7-18); CREATININE 0.65 mg/dL (0.55-1.02); Calcium 8.5 mg/dL (8.5-10.1); Chloride 110 mmol/L (98-107); Glucose 90 mg/dL (74-106); Magnesium 1.8 mg/dL (1.8-2.4); Sodium 145 mmol/L (136-145)
[2019-10-24] MEDS: Heparin 5,000 UNITS/ML VIAL 5000 UNITS SC (07:26)
[2019-10-24 07:33] VITALS: BP 158/89; PULSE 77; RESP 18; TEMP 36.7; O2SAT 98
[2019-10-24] MEDS: Aspirin 81 MG CHEW PO (07:52)
--- NOTE | 2019-10-24 09:06 | W.PM.DS.N ---
Date of service: 10/24/19 Time of Service: 09:07 DS: Diagnosis Discharge Diagnosis (1) Syncope: Start date: 10/24/19 Start time: 09:07 Status: Chronic Asessment and Plan: Unclear etiology. Telemetry not revealing for any abnormal rhythm. Wear holter monitor follow up with PCP in 3 days, Stress test as an outpatient, echo as an outpatient. Neurology consult. (2) DVT prophylaxis: Status: Acute (3) Discharge planning issues: Status: Acute Discharge Plan Disposition Patient Disposition: HOME Condition: Stable Discharge Details Chief Complaint: Dizzy/Sync Reason For Visit: RECURRENT SYNCOPAL EVENTS Admit Date/Time: 10/24/19 07:56 Admit Provider: Myra Aldrich Attending Provider: Myra Aldrich Primary Care Provider: Jazmyne Nowak ED Provider: Jodie Clarke Hospital Course Hospital Course: 63 y.o female with PMH of OA, admitted from [facility] ED to /s for syncope. 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 She was seen by the ED the day prior to admission and refused admission but was agreeable to a holter monitor. Day of admission holter monitor revealed HR between 70's up to 140's. Imaging and labs reviewed in the ED were unremarkable, CT was negative. She was admitted for further management. During course of treatment telemetry was no higher than 120's while getting up and moving around. CTA of head and neck negative for acute abnormality. Labs were unremarkable, slightly elevated cholesterol, started on statin, asa. At this time patient would like to continue syncope work up as an outpatient. She is agreeable to 48 hour holter monitor with outpatient echo, stress and neuro consult. She denies CP, SOB, dizziness, n/v/d. Home Meds and New Rx's Prescriptions: New atorvastatin [Lipitor] 20 mg Tablet 20 mg PO QPM Qty: 30 RF: 0 aspirin 81 mg Tablet,Chewable 81 mg PO DAILY Qty: 30 RF: 0 Continued melatonin 1 MG tablet 1 mg PO HS PRN PRNRF: 0 Discharge Instructions Instructions: Syncope (GEN) Additional Instructions: You will be called to schedule an ECHO, STRESS TEST and NEUROLOGY recommend follow up for all testing. FOLLOW UP WITH Primary for Blood pressure checks. Slightly elevated during admission. many factors can contribute to this. Follow up for further investigation Follow up with your primary provider by Friday Do NOT WORK until you follow up with your PCP Seek medical attention if you have Chest pain, dizziness, lightheadedness Referrals: Mayi Farnsworth MD [ [facility] STAFF PHYSICIAN] - (For syncope) Activity:: Activity as Tolerated Equipment/Supplies:: No Equipment Needed Diet:: As Tolerated Discharge Orders Discharge Orders: Discharge Order (Routine); Ordered 10/24/19 Ordered By: Kimmy Boyd Other Ambulatory Orders: US echocardiogram (Routine) Location: None Selected Ordered By: Kimmy Boyd NM MPI rest & stress grp (Routine) Location: None Selected Ordered By: Kimmy Boyd DS: Summary Status at Discharge Functional status at discharge: independent ambulation Overall status at discharge: patient is back to baseline Mental Status: mental status grossly normal Speech and Movement: speech and movement normal Mood: congruent mood Affect: normal affect Exam Narrative Exam Narrative: General: appears stated age, awake, alert and oriented. Pleasant and cooperative, talkative. HEENT: normocephalic, atraumatic, pupils equal and round, EOMI, mucous membranes moist. Neck: supple, no JVD. Cardiovascular: heart has regular rate and rhythm, no murmur appreciated. Respiratory: respirations even and unlabored, lung sounds clear bilaterally. Abdomen: normoactive bowel sounds, abdomen soft, nontender, nondistended. Extremities: no clubbing, cyanosis or edema. No calf swelling or tenderness. Psych Mental Status: mental status grossly normal Speech and Movement: speech and movement normal Mood: congruent mood Affect: normal affect DS: Data Vitals/I&O Vitals and I&O: Vital Signs Temperature 36.7 C 10/24/19 07:33 Temperature Source Tympanic 10/24/19 07:33 Pulse 77 10/24/19 07:33 Pulse Rhythm Irregular 10/24/19 07:45 Pulse 96 H 10/22/19 15:15 Respiratory Rate 18 10/24/19 07:33 Respiratory Effort 10/24/19 07:45 Respiratory Depth Normal 10/24/19 07:45 Respiratory Pattern Normal 10/24/19 07:45 Blood Pressure 158/89 H 10/24/19 07:33 Blood Pressure Mean 101 10/22/19 15:15 Blood Pressure Position Sitting 10/22/19 11:28 Pulse Oximetry 98 10/24/19 07:33 Oxygen Delivery Method Room Air 10/24/19 07:33 Oxygen Flow Rate 0 10/24/19 07:33 Pain Level 0 10/24/19 07:33 Intake & Output 10/23/19 10/23/19 10/24/19 11:59 23:59 11:59 Intake Total 1804.583 / 4044.583 2240 / 4044.583 1050 / 1050 Output Total 200 / 400 200 / 400 650 / 650 Balance 1604.583 / 3644.583 2040 / 3644.583 400 / 400 Weight 80.8 kg 80.6 kg Intake: IV 964.583 / 2964.583 2000 / 2964.583 1000 / 1000 Oral 840 / 1080 240 / 1080 50 / 50 Output: Urine 200 / 400 200 / 400 650 / 650 Other: Urine Color Yellow Pale Pale Yellow Yellow Urine Appearance Cloudy Clear Clear Urine Odor None Comment VOID X 1 REPORTED BY PATIENT voided in toilet and missed hat. no dizziness oob to br Voiding Methods Toilet Toilet Toilet Data Completed and Pending Completed studies during hospitalization [Text1]: dwight(s) PROCEDURE INFORMATION: Exam: CT Angiography Head Without And With Contrast Exam date and time: 10/23/2019 10:03 AM Age: 63 years old Clinical indication: Syncope and collapse TECHNIQUE: Imaging protocol: Computed tomographic angiography of the head without and with intravenous contrast. 3D rendering: MIP and/or 3D reconstructed images were created by the technologist. COMPARISON: CT HEAD WO 10/21/2019 2:20 PM FINDINGS: Right internal carotid artery: Calcifications along the wall of the intracranial portions of the right internal carotid artery without significant stenosis. No aneurysm. Right anterior cerebral artery: Unremarkable. No occlusion or significant stenosis. No aneurysm. Right middle cerebral artery: Unremarkable. No occlusion or significant stenosis. No aneurysm. Right posterior cerebral artery: Unremarkable. No occlusion or significant stenosis. No aneurysm. Right vertebral artery: Unremarkable. No occlusion or significant stenosis. No aneurysm. Left internal carotid artery: Calcifications along the wall of the intracranial portions of the left internal carotid artery without significant stenosis. No aneurysm. Left anterior cerebral artery: Unremarkable. No occlusion or significant stenosis. No aneurysm. Left middle cerebral artery: Unremarkable. No occlusion or significant stenosis. No aneurysm. Left posterior cerebral artery: Unremarkable. No occlusion or significant stenosis. No aneurysm. Left vertebral artery: Unremarkable. No occlusion or significant stenosis. No aneurysm. Basilar artery: Unremarkable. No occlusion or significant stenosis. No aneurysm. HEAD: Brain: Is mild age-related atrophy. No hemorrhage. No significant white matter disease. No edema. No evidence of acute territorial infarction. Ventricles: Normal. No ventriculomegaly. Bones/joints: Unremarkable. No acute fracture. Sinuses: Mild mucosal thickening in the left maxillary sinus. No fluid levels. Mastoid air cells: Visualized mastoids are normal. No mastoid effusion. Soft tissues: Unremarkable. IMPRESSION: Negative CTA head exam. No stenosis or occlusion. PROCEDURE INFORMATION: Exam: CT Angiography Neck With Contrast Exam date and time: 10/23/2019 10:03 AM Age: 63 years old Clinical indication: Syncope and collapse TECHNIQUE: Imaging protocol: Computed tomography angiography of the neck with intravenous contrast. 3D rendering: MIP and/or 3D reconstructed images were created by the technologist. COMPARISON: CT HEAD WO 10/21/2019 2:20 PM FINDINGS: VASCULATURE: Right common carotid artery: Unremarkable. No significant stenosis. No dissection or occlusion. Right internal carotid artery: Calcifications at the proximal right internal carotid artery without stenosis. No dissection or occlusion. Very tortuous distal right internal carotid artery just below the skull base. Right external carotid artery: Unremarkable. No occlusion or significant stenosis. Right vertebral artery: Tortuous. No significant stenosis. No dissection or occlusion. Left common carotid artery: Unremarkable. No significant stenosis. No dissection or occlusion. Left internal carotid artery: Calcifications of the proximal left internal carotid artery without stenosis. No dissection or occlusion. Very tortuous distal left internal carotid artery just below the skull base. Left external carotid artery: Unremarkable. No occlusion or significant stenosis. Left vertebral artery: Tortuous. No significant stenosis. No dissection or occlusion. NECK: Submandibular/Parotid glands: 11 mm x 8 mm x 10 mm dense nodule in the lateral aspect of the right parotid gland. Bones/joints: No acute fracture. Multilevel degenerative changes. Mild, grade 1 anterolisthesis of C2 relative to C3 (sagittal series 18 image 34) with asymmetric facet hypertrophy. Soft tissues: Unremarkable. No significant soft tissue swelling. IMPRESSION: 1. No stenosis or occlusion. 2. Tortuous cervical arteries which may correlate with chronic hypertension. 3. Mild, grade 1, anterolisthesis of C2 relative to C3. This is nonspecific but may be degenerative as there is asymmetric facet hypertrophy at this level. 4. Right parotid gland nodule. COMMENT: Reference per NASCET criteria for degree of stenosis: Mild: less than 50% stenosis. Moderate: 50-69% stenosis. Severe: 70-94% stenosis. Near occlusion: 95-99% stenosis. xam(s) a RAD:XR chest 2V PA & lateral EXAM: XR CHEST 2V PA LATERAL XR CHEST 2V PA LATERAL CLINICAL HISTORY: syncope syncope TECHNIQUE: 2D digital imaging was performed. COMPARISON: XR CHEST 2V PA LATERAL from 10/21/2019 FINDINGS: The heart is not enlarged. The lungs are clear and well expanded. No pleural effusion seen. Mediastinal contours appear intact. IMPRESSION: Normal chest Labs on day of discharge: Labs from last 24 hours 10/24/19 10/24/19 06:00 06:00 WBC 4.34 L RBC 4.12 Hgb 13.0 Hct 38.2 MCV 92.7 MCH 31.6 MCHC 34.0 RDW 12.7 Plt Count 188 MPV 9.7 Sodium 145 Potassium 4.0 Chloride 110 H Carbon Dioxide 24.0 Anion Gap 11.0 BUN 9 Creatinine 0.65 Estimated GFR/1.73 m2 >= 60.00 Glucose 90 Calcium 8.5 Magnesium 1.8 [facility] Medical History Varicose vein of leg Surgical History Arthroscopy Fracture of Pelvis Meniscus Cleaned Out (L)Knee Replacement of total knee joint right Social History Smoking/Tobacco Use Status: Never Alcohol Intake: current Alcohol Intake frequency: a few times a month Alcohol type: beer Drug use: Occasionally Substance use type: marijuana Housing: house 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
--- NOTE | 2019-10-24 14:34 | PDOC.CMDIS ---
- If Service Date Differs Date of service: 10/24/19 Time of Service: 14:34 LACE Index Scoring Tool - Questions: Length of Stay (in days): 2 Acuity (Admit via E.D.?): Yes E.D. Visits: 2 - Answers: Total Score: 7 Risk of Readmission: Low Risk Care Management Discharge Reason for Hospitalization: Recurrent Syncopal Events Discharge Plan: Alexia will return home with no additional services at this time. She will follow up with an echo and a stress test as an outpatient. She will have a 48 hr halter monitor on, which she will follow up with her PCP regarding in three days. Her friend will drive her home in a private vehicle. CM provided her with a patient assistance packet that she will return to the patient accounts department. She is agreeable to the plan. Patient/Family Education Needs: Review discharge instructions regarding activity levels, discussion of self care needs including Ask Me Three
== END 2019-10-24 11:12 | disposition home or self-care (01) | DRG 312 ==
LOC: ER 15:04 → MS 15:52
PROVIDERS: Nurse Practitioner; Nurse Practitioner Family; Admitting Provider Internal Medicine; Emergency Provider Physician Assistant; PCP Nurse Practitioner; Visit Provider Family Medicine
DX: R55 Syncope and collapse (principal); F12.90 Cannabis use, unspecified, uncomplicated; Z23 Encounter for immunization
CPT/HCPCS: 36415; 70496; 70498; 80048; 80053; 80061; 80307; 85027; 87449; 93005; 96360; 96361; 99219; 99233; 99239; 99285; 71046; 81003; 81015; 83036; 83735; 84484; 85025; 85379; 93010; 93225; 93226; 99217; 99226; 99238; 99284; G0378; J1644; J3490

== ENCOUNTER 2019-10-26 12:03 | Outpatient (CLI) | payer OTHER, SELFPAY ==
--- NOTE | 2019-10-26 13:44 | W.HOLTRPT ---
Date of service: 10/26/19 Time of Service: 13:44 Holter Monitor Report Holter Monitor Note: This is a 48-hour Holter monitor ordered for the indication of syncope. ?The patient was in normal sinus rhythm for majority of the recording. ?There were 0 episodes of supraventricular tachycardia and 2 single premature atrial contractions. ?There were no episodes of ventricular tachycardia and no ventricular ectopic beats. ?There were no episodes of atrial fibrillation, no pauses greater than 3 seconds and no episodes of high degree heart block. Impression: No significant arrhythmias or ectopy.
== END 2019-10-26 12:23 ==
PROVIDERS: PCP Nurse Practitioner; Visit Provider Nurse Practitioner
DX: R55 Syncope and collapse (principal); I49.1 Atrial premature depolarization
CPT/HCPCS: 93226

== ENCOUNTER 2021-01-03 03:46 | Outpatient (CLI) | payer MEDICARE, SELFPAY ==
[2021-01-03 12:52] LABS: HCT 42.3 % (36.0-46.0); HGB 14.4 g/dL (11.2-15.7); MCV 91.2 fL (80-95); MPV 10.2 fL (8.0-11.0); Platelet Count 226 10^3/uL (130-400); RBC 4.64 10^6/uL (3.93-5.22); RDW 12.1 % (11.7-14.6); RDW-SD 40.7 fL; WBC 5.67 10^3/uL (4.4-10.8)
[2021-01-03 13:34] LABS: ALT 34 U/L (14-59); AST 19 U/L (15-37); Albumin 3.8 g/dL (3.4-5.0); Alkaline Phosphatase 74 U/L (46-116); Anion Gap 12.1 mmol/L (3-11); BUN 10 mg/dL (7-18); Bilirubin, Total 0.4 mg/dL (0.2-1.0); CO2 23.9 mmol/L (21.0-32.0); CREATININE 0.7 mg/dL (0.55-1.02); Calcium 8.9 mg/dL (8.5-10.1); Calculated LDL 158 mg/dL (<100); Chloride 106 mmol/L (98-107); Cholesterol 222 mg/dL (<200); Glucose 91 mg/dL (74-106); HDL Cholesterol 43 mg/dL (40-60); Potassium 4.4 mmol/L (3.5-5.1); Sodium 142 mmol/L (136-145); TSH (W/Ref FT4) 0.93 uIU/mL (0.36-3.74); Total Protein 6.7 g/dL (6.4-8.2); Triglyceride 109 mg/dL (<150); Vitamin B12 433 pg/mL (193-986)
== END 2021-01-03 03:47 | disposition home or self-care (01) ==
LOC: LOS 03:46
PROVIDERS: PCP Nurse Practitioner; Visit Provider Nurse Practitioner
DX: E78.00 Pure hypercholesterolemia, unspecified (principal); I10 Essential (primary) hypertension; R55 Syncope and collapse; E66.3 Overweight
CPT/HCPCS: 36415; 80053; 80061; 85027; 82607; 84443

== ENCOUNTER 2021-01-09 09:23 | Outpatient (RCR) | payer MEDICARE, SELFPAY ==
--- NOTE | 2021-01-09 15:30 | HOLTER_ITS ---
APPROVED REPORT Exam Type: HOLTER MONITOR APPLICATION Reason for Test: syncope, loc, falls Patient Location: O Conclusion This is a 48-hour Holter monitor ordered for indication of syncope. Patient was in normal sinus rhythm for the majority of the recording with an average heart rate of 87 bpm. There were rare PVCs and no PACs. There were no episodes of supraventricular tachycardia nor any episodes of ventricular tachycardia. There was no evidence of atrial fibrillation, no pauses greater than 3 seconds and no evidence of hig h degree heart block. There were 2 patient events associated with sinus rhythm and sinus tachycardia.
== END 2021-01-24 23:59 | disposition home or self-care (01) ==
LOC: RT 09:23
PROVIDERS: PCP Nurse Practitioner; Visit Provider Nurse Practitioner
DX: R55 Syncope and collapse (principal); R29.6 Repeated falls
CPT/HCPCS: 93227; 93225; 93226

== ENCOUNTER 2021-01-19 03:16 | Outpatient (CLI) | payer MEDICARE, SELFPAY ==
--- NOTE | 2021-01-19 09:22 | DI.US_ITS ---
APPROVED REPORT EXAM: Comprehensive 2D, Doppler, and color-flow Echocardiogram Patient Location: Out-Patient [employer] Instructor: Cinda Aviles RDCS (AE) Indications: Syncope, coma, head injury Other Information Study Quality: Good Conclusion Left Ventricle : The left ventricle is normal size. The left ventricular systolic function is normal. The left ventricular ejection fraction is within the normal range. There is normal left ventricular wall thickness. There is normal LV segmental wall motion. The left ventricular diastolic function is normal. LVEF is 60%. Right Ventricle : The right ventricle is normal size. The right ventricular systolic function is norm al. The RVSP is 18.1 mmHg. Atria : The left atrium size is normal. The right atrium size is normal. Mitral Valve : The mitral valve is normal in structure. Mild mitral regurgitation. No evidence of shanta ral valve stenosis. Great Vessels : The aortic root is normal in size. The ascending aorta is mildly dilated. Aortic arch is normal in caliber. IVC is normal in size and collapses >50% with inspiration. Please see remainder of study for further details. Wall motion Left Ventricle The left ventricle is normal size. The left ventricular systolic function is normal. The left ventric ular ejection fraction is within the normal range. There is normal left ventricular wall thickness. T here is normal LV segmental wall motion. The left ventricular diastolic function is normal. There is no ventricular septal defect visualized. LVEF is 60%. Right Ventricle The right ventricle is normal size. The right ventricular systolic function is normal. The RVSP is 18 .1 mmHg. Atria The left atrium size is normal. The right atrium size is normal. The interatrial septum is intact wit h no evidence for an atrial septal defect. Aortic Valve The aortic valve is normal in structure. Aortic valve is trileaflet. There is no aortic valvular sten osis. No aortic regurgitation is present. Mitral Valve The mitral valve is normal in structure. No evidence of mitral valve stenosis. Mild mitral regurgitat ion. Tricuspid Valve The tricuspid valve is normal in structure. There is no tricuspid valve stenosis. Trace tricuspid reg urgitation. Pulmonic Valve The pulmonary valve is normal in structure. There is no pulmonic valvular stenosis. There is no pulmo greg valvular regurgitation. Great Vessels The aortic root is normal in size. The ascending aorta is mildly dilated. Aortic arch is normal in ca liber. IVC is normal in size and collapses >50% with inspiration. Pericardium There is no pericardial effusion. 2D Dimensions IVSD d PLAX 0.96 cm F: 0.6-1.0 LV Vol A2C d MOD 93.4 mL LVPW d PLAX 0.97 cm F: 0.6 - 1.0 LV Vol A4C d MOD 84.1 mL LVID d PLAX 4.58 cm F: 3.8 - 5.2 LA vol/ BSA A2C s A-L 24.1 mL/m2 LVDs 3.15 cm F: 2.2 - 3.5 LA vol/ BSA A4C s A-L 15.5 mL/m2 Ao Root d 2.84 cm F: 2.7 - 3.3 LA Vol/ BSA Biplane s A-L 19.5 mL/m2 RA Area A4C 10.80 cm2 LA Area A4C s MOD 12.60 cm2 RA Vol/ BSA A4C s A-L 11.0 mL/m2 LA Area A2C s MOD 15.85 cm2 Ao Asc Diam d 3.57 cm F: 2.3 - 3.1 LV EF A4C MOD 60.4 % LV EF Teichholz 58.6 % LV EF A2C MOD 59.1 % LVEF (Gunderson's) 59.41 % F: 54 - 74 LV EF Biplane MOD 59.4 % LV Volume 68.09 mL F: 46 - 106 SV 53.32 mL LV Volume Index 35.27 mL/m2 F: 29 - 61 SV Index 27.58 mL/m2 LV Vol Biplane MOD 89.8 mL FS 30.90 % M-Mode TAPSE 1.85 cm (M/F) >1.7 LV Diastology MV E' medial 0.068 (>0.07 m/s) E/A Ratio 0.8 LV E/e MED 8.95 (<14) MV E Vmax 0.61 (0.4-1.3 m/s) MV E' lateral 0.116 (>0.1 m/s) MV A Vmax 0.75 (0.4-1.3 m/s) LV E/e LAT 5.25 (<14) MV E/A Ratio 0.81 MV E/E' medial 8.95 MV E/E' lateral 5.27 Aortic Valve LVOT Area 3.13 cm2 AoV Area Vmax 2.43 cm2 LVOT Vmax 1.01 m/s AoV Area/ BSA (Vmax) 1.25 cm2/m2 LVOT Mean Pepe. 0.64 m/s RONY Mean Pepe. 2.32 cm2 LVOT Peak Grad 4.1 mmHg RONY Mean Pepe. Index 1.20 cm2/m2 LVOT Mean Grad 1.9 mmHg LVOT VTI 0.186 m LVOT Diam s 1.95 cm AoV Vmax 1.30 m/s Velocity Ratio 0.77 AoV Mean Pepe. 0.86 m/s AoV Peak Grad 6.8 mmHg LVOT SV 58.26 mL AoV Mean Grad 3.4 mmHg AoV VTI 0.209 m AoV Area VTI 2.78 cm2 AoV Area/ BSA (VTI) 1.44 cm/m2 Mitral Valve MV DT 188 (160-240 msec) MR Vmax 4.79 m/s MV PHT 54 msec MR VTI 1.731 m MV Area PHT 4.04 cm2 MR Peak Grad 91.8 mmHg MV VTI 0.194 m MR Mean Grad 66.3 mmHg MV VTI Annulus 0.208 m MV Area VTI 3.23 (4.0-6.0 cm2) Pulmonary Valve PV Vmax 0.83 (0.5-1.5 m/s) RVOT Peak Gr. 1.74 mmHg PV Peak Grad 2.7 mmHg RVOT Mean Gr. 0.90 mmHg PV Mean Grad 1.6 mmHg RVOT VTI 0.146 m PV VTI 0.199 m RVOT Vmax 0.66 m/s Tricuspid Valve TR Peak Grad 15.1 mmHg TR Vmax 1.94 m/s RA Pressure 3.00 mmHg RVSP (TR) 18.1 mmHg
== END 2021-01-19 03:36 ==
PROVIDERS: PCP Nurse Practitioner; Visit Provider Nurse Practitioner
DX: R55 Syncope and collapse (principal); S09.90XD Unspecified injury of head, subsequent encounter
CPT/HCPCS: 93306

== ENCOUNTER 2022-09-20 07:16 | Observation (INO) | payer MEDICARE, SELFPAY ==
[2022-09-20] VITALS (58 sets, daily range): BP systolic 81–152; BP diastolic 47–103; PULSE 26–105; RESP 15–27; TEMP 36.1–38.1; O2SAT 85–100
--- NOTE | 2022-09-20 07:00 | RT.EKG_ITS ---
APPROVED REPORT Exam: Resting ECG Reason for Exam: seizure Patient Location: E HR:101 bpm ECG Measurements Heart Rate 101 AXIS WY 172 P 70 QRSd 115 QRS -57 QT 380 T 87 QTc 494 Conclusion Sinus tachycardia...rate> 99 Probable left atrial enlargement...P >50mS, <-0.10mV V1 Left anterior fascicular block...axis(240,-40), init forces inf Nonspecific T abnrm, anterolateral leads...T <-0.10mV, I aVL V2-V6
--- NOTE | 2022-09-20 07:15 | DI.CT_ITS ---
Exam(s) CT HEAD - STROKE PROTOCOL EXAM: CT HEAD - STROKE PROTOCOL CLINICAL HISTORY: seizure, mental status change. TECHNIQUE: Imaging Protocol: Axial computed tomography images with coronal and sagittal reformatted images were created and reviewed COMPARISON: CT CT BRAIN NECK CTA from 10/23/2019 FINDINGS: The ventricular system is normal in appearance. No evidence of acute intracranial hemorrhage, mass effect, or midline shift. The orbital structures are unremarkable. The temporal bone structures appear intact. Calvarium: Normal. Visualized Paranasal sinuses/Mastoids: Mucoperiosteal thickening of left maxillary antrum noted, othe rwise the sinuses are clear. IMPRESSION: No evidence of acute intracranial process. RADIATION DOSE DELIVERED: Total DLP Total DLP DATA REPOSITORY: All CT scans at this facility are submitted to the National Radiology Data Registry (NRDR) Dose Index Registry (DIR) with the [employer] (ACR). RADIATION OPTIMIZATION: All CT scans at this facility use at least one of these dose optimization te chniques: automated exposure control; mA and/or kV adjustment per patient size (includes targeted exa ms where dose is matched to clinical indication); or iterative reconstruction.
[2022-09-20 07:31] LABS: Abs Immature Grans 0.07 10^3/uL (0.0-0.06); Absolute Basophil Count 0.02 10^3/uL (0.0-0.2); Absolute Eosinophil Count 0.06 10^3/uL (0.0-0.7); Absolute Lymphocyte Count 1.16 10^3/uL (1.2-3.4); Absolute Monocyte Count 0.38 10^3/uL (0.1-0.8); Basophils % 0.2; Eosinophils % 0.6; HCT 44.9 % (36.0-46.0); HGB 15.2 g/dL (11.2-15.7); Immature Grans % 0.7; Lymphocytes % 11.5; MCH 31.7 pg (27.0-33.0); MCHC 33.9 % (32.0-36.0); MCV 94 fL (80-95); MPV 9.3 fL (8.0-11.0); Monocytes % 3.8; Neutrophils % 83.2; Platelet Count 213 10^3/uL (130-400); RBC 4.79 10^6/uL (3.93-5.22); RDW 11.9 % (11.7-14.6); RDW-SD 41.2 fL; WBC 10.09 10^3/uL (4.4-10.8)
--- NOTE | 2022-09-20 07:43 | ED.GENADUL_ITS ---
Discharge Plan Disposition Patient Disposition: Admit to [facility] Condition: Stable Discharge Details Clinical Impression: Seizure Admit Date/Time: 09/20/22 10:25 Admit Provider: Felipe Martinez Attending Provider: Felipe Martinez Primary Care Provider: Jazmyne Nowak ED Provider: Gigi Granados Discharge Data Discharge Date/Time-TO BE ENTERED AT DEPARTURE: 09/20/22 12:19 Medical Decision Making Patient arrives to the emergency follow-up with nonfocal exam. Head CT done and read at 745 is within normal limits. 8:45 AM Case discussed with Dr. Farnsworth. Recommendations are to start the patient on Keppra. Loading dose of 2 g followed by 1 g twice daily. The patient returns to baseline outpatient follow-up will be arranged but the patient has a prolonged postictal observation will be warranted. If we are able to do a spot EEG that will be ordered if not this can be done as an outpatient. Asked my discussion with the neurologist, the patient was noticed to be having some episodes of sinus bradycardia. She would respond to verbal stimuli in the sinus bradycardia which resolved spontaneously. She never required any pharmacological intervention. Interestingly enough, during these episodes of sinus bradycardia the patient was asymptomatic. Her blood pressure did dip in association with these episodes of sinus bradycardia but never did she complain of any lightheadedness dizziness shortness of breath or any chest discomfort. The case was discussed my colleague hospitalist. Patient to be admitted to telemetry the family did voice some concerns regarding the possible need for an ICU admission. I reassured them that she could go to the floor on telemetry. I had this discussion with my colleague hospitalist. The patient is being admitted for possible seizures and postictal state as well as episodes of sinus bradycardia. Sign Out No HPI General Date/Time Provider Initiated Documentation: 09/20/22 07:43 . HPI Narrative: 63-year-old lady brought to the emergency department via EMS after she was found snoring by family. She was difficult to arouse according EMS report and as such family concerned that she could have had a seizure while sleeping. She was transported to the emergency department without incident by EMS. Normal fingerstick. Nonfocal exam in the emergency department the patient is sleeping. Arousable. Calm, communicating well. The patient answers questions and then goes back to sleep. She has no complaints. Further history is obtained by her son and her [id number]. The patient's [id number] tells me that approximately 6:10 AM she was summoned by her daughter with sleep in the same room as the patient. Patient at that time was described as being very stiff with sonorous respiration foaming at the mouth and being unresponsive. It was also noted that the patient had been incontinent of urine. The stiffness dissipated over the course of a few minutes and then she had a second episode at which point EMS was summoned. The [id number] and her son describe these episodes are very different than what she has had in the past with her fainting spells. Related Data Home Medications Medication Instructions Recorded Confirmed Unknown [No Known Home Meds] 05/08/22 09/20/22 Allergies Allergy/AdvReac Type Severity Reaction Status Date / Time Wasp Sting Allergy Severe Anaphylaxis Uncoded 09/20/22 10:51 General Stated Complaint: Seizure NELLI: 2 Review of Systems Narrative: Review of systems Constitutional is been negative for fever chills, negative for malaise, negative for fatigue. Eyes: No visual changes, no tearing ENT: No sore throat, no pain in the ears, no hearing change, no rhinorrhea Cardiovascular no chest pain, no shortness of breath with exertion, no palpitations, no lightheadedness Respiratory: No shortness of breath, no cough, GI: No abdominal pain, no diarrhea, no nausea, no vomiting, no dark stools : No dysuria, no frequency, no hematuria MSK: No myalgias, no arthralgias Skin: No rash Neurological: No headaches, no focal weakness, no paresthesias, no dizziness Psych: No anxiety, no depression Endo: No weight gain no weight loss Hematology/lymph: No painful nodes, no easy bleeding, not on blood thinners PFSH All Active Problems (Updated 09/20/22 @ 10:27 by Gigi Granados MD) Seizure (Acute) Colon cancer screening (Acute) Medical History (Updated 09/20/22 @ 10:27 by Gigi Granados MD) Adjustment disorder Anxiety Discharge planning issues DVT prophylaxis Elevated cholesterol (01/27/17) Head injury LOC (loss of consciousness) Medicare annual wellness visit, subsequent Osteoarthritis of both knees (01/16/17) Overweight (01/27/17) Syncope Varicose vein of leg Vasovagal syncope Surgical History Arthroscopy Fracture of Pelvis Meniscus Cleaned Out (L)Knee Replacement of total knee joint right Family History Paternal Grandfather Heart disease Social History (Updated 05/08/22 @ 08:47 by Lori Shah) Smoking/Tobacco Use Status: Never Smoking risk assessment performed?: Yes Alcohol Intake: current Alcohol Intake frequency: a few times a month Alcohol type: beer Drug use: Daily Substance use type: marijuana Adopted: No Caregiver/Support person: No Foster care: No Household members: none Housing: house Number of Children: 1 Communication Needs: None Education Level: college Details: Bachelor's in Arts Do you need help understanding health information?: Never 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, 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[employer] - [employer] Pets and animals: No Sexually active: No Do you think of yourself as: lesbian/price/homosexual Current gender identity: female What is your relationship status?: How often do you talk on the phone with friends or family?: three or more times per week How often do you get together with friends or relatives?: once per week How often do you attend religious or yarsani services?: decline to answer Do you belong to any clubs or organized social groups?: yes Panel score (0-1 are the most socially isolated patients): 2 What type of physical activity do you participate in: walking and regular exercise Duration: 45-60 minutes/day Frequency: daily Seatbelt use: always Helmet use: Yes Drive intox or ride w/intox shuttle driver: No Water heater temp set <120 deg: Yes Working smoke detector in home: Yes Fire extinguisher in home: Yes Carbon monox detector in home: Yes Firearms in home: No Do you feel safe at home: Yes Do you feel safe in your relationship?: Yes Exam Narrative Exam Narrative: General: A,A Ox3, Calm, no apparent distress, well developed, pleasant and cooperative Head Size/Shape: normocephalic, atraumatic Eyes Pupils: PERRLA Extraocular Mobility: intact and symmetrical Conjunctiva: non-injected, anicteric, no discharge Ears, Nose, Throat Nares: patent bilaterally Oral Cavity: moist Neck: no masses, no crepitus Lymph Nodes: no cervical lymphadenopathy Respiratory Respiratory Effort: no dyspnea Auscultation: clear to auscultation bilaterally, normal breath sounds, no wheezing, no rales/crackles Cardiovascular Heart Auscultation: regular rate and rhythm, normal S1, normal S2, no murmurs, no rubs, no gallops, Pulse Quality: +2 equal bilaterally, location(s) Abdomen Inspection and Palpation: soft, non-tender, non-distended, no hepatosplenomegaly Musculoskeletal System Joints, Bones, and Muscles: no deformities Extremities: warm and well-perfused, no cyanosis, capillary refill <2 seconds Skin Skin Inspection: no rash, no lesions, no bruising Neurological Motor: normal tone, normal strength, moving all extremities equally Reflexes: deep tendon reflexes 2+ bilaterally, no clonus Psychiatric: good insight, good judgement, normal mood and affect Course Vital Signs Vital signs: Vital Signs Temperature 36.1 C L 09/20/22 07:18 Pulse 105 H 09/20/22 07:18 Respiratory Rate 24 09/20/22 07:18 Blood Pressure 152/103 H 09/20/22 07:18 Pulse Oximetry 96 09/20/22 07:18 Temperature 36.1 C L 09/20/22 07:18 Temperature Source Temporal Artery Scan 09/20/22 07:18 Pulse 105 H 09/20/22 07:18 Respiratory Rate 24 09/20/22 07:18 Respiratory Effort 09/20/22 07:40 Respiratory Depth Normal 09/20/22 07:40 Respiratory Pattern Normal 09/20/22 07:40 Blood Pressure 152/103 H 09/20/22 07:18 Pulse Oximetry 96 09/20/22 07:18 Oxygen Delivery Method Nasal Cannula 09/20/22 07:18 Oxygen Flow Rate 4 09/20/22 07:18 Lab/Test Results Lab/Test Results: Laboratory Tests Range/Units 09/20/22 07:24 WBC (4.4-10.8) 10^3/uL 10.09 RBC (3.93-5.22) 10^6/uL 4.79 Hgb (11.2-15.7) g/dL 15.2 Hct (36.0-46.0) % 44.9 MCV (80-95) fL 94 MCH (27.0-33.0) pg 31.7 MCHC (32.0-36.0) % 33.9 RDW (11.7-14.6) % 11.9 Plt Count (130-400) 10^3/uL 213 MPV (8.0-11.0) fL 9.3 Immature Gran % 0.7 Neutrophils % 83.2 Lymphocytes % 11.5 Monocytes % 3.8 Eosinophils % 0.6 Basophils % 0.2 Nucleated RBC % (0.0-0.3) % 0.0 Absolute Neutrophils (1.2-6.7) 10^3/uL 8.40 H Absolute Lymphocytes (1.2-3.4) 10^3/uL 1.16 L Absolute Monocytes (0.1-0.8) 10^3/uL 0.38 Absolute Eosinophils (0.0-0.7) 10^3/uL 0.06 Absolute Basophils (0.0-0.2) 10^3/uL 0.02
[2022-09-20 07:48] LABS: PTT Activated 23.3 sec (21.0-27.5); Prothrombin Time 10.1 sec (9.3-11.0)
[2022-09-20 07:53] LABS: ALT 30 U/L (14-59); AST 24 U/L (15-37); Albumin 4.2 g/dL (3.4-5.0); Alkaline Phosphatase 80 U/L (46-116); Anion Gap 16.5 mmol/L (3-11); BUN 11 mg/dL (7-18); Bilirubin, Total 0.5 mg/dL (0.2-1.0); CO2 20.5 mmol/L (21.0-32.0); CREATININE 1.2 mg/dL (0.55-1.02); Calcium 8.8 mg/dL (8.5-10.1); Chloride 104 mmol/L (98-107); Estimated GFR 49.92 (mL/min/1.73m2); Glucose 239 mg/dL (74-106); Potassium 3.7 mmol/L (3.5-5.1); Sodium 141 mmol/L (136-145); Total Protein 7.8 g/dL (6.4-8.2)
[2022-09-20 08:03] LABS: Bilirubin Negative (Negative); Blood Moderate (Negative); Clarity Clear (Clear); Glucose 250 mg/dL (Negative); Ketones Negative (Negative); Leukocyte Esterase Negative (Negative); Nitrite Negative (Negative); Specific Gravity >= 1.030 (1.005-1.025); Urobilinogen 0.2 EU/dL (Up TO 0.2)
[2022-09-20 08:07] LABS: ETHANOL BLOOD < 3.0 mg/dL (<10)
[2022-09-20 08:12] LABS: Bacteria Negative HPF (Negative); C & S Indicated? No; Casts 0-2 Hyaline LPF (Negative); Crystals Negative HPF (Negative); Epithelial Cells Rare HPF (Negative); Mucus Negative (Negative); WBC Negative HPF (0-5)
[2022-09-20 08:19] LABS: *AMPHETAMINES SCREEN URINE Negative (Negative); *BARBITURATES SCREEN URINE Negative (Negative); *BENZODIAZEPINES SCREEN URINE Negative (Negative); Cannabinoids THC Positive (Negative); Cocaine Screen,Urine Negative (Negative); METHADONE URINE SCREEN Negative (Negative); OPIATES URINE SCREEN Negative (Negative)
[2022-09-20 08:22] LABS: Tricyclic Antidepressants Negative (Negative)
--- NOTE | 2022-09-20 08:45 | RT.EKG_ITS ---
APPROVED REPORT Exam: Resting ECG Reason for Exam: bradycardia Patient Location: E HR:31 bpm ECG Measurements Heart Rate 31 AXIS IN [id number] P [id number] QRSd 136 QRS -44 QT 497 T 54 QTc 358 Conclusion sinus federico
[2022-09-20] MEDS: Normal Saline 1,000 ML 1000 ML IV (09:12)
[2022-09-20] MEDS: levETIRAcetam 500 MG TAB 2000 MG PO (09:12)
[2022-09-20 09:28] LABS: Source Nasal/Nares
[2022-09-20 09:56] LABS: TSH (W/Ref FT4) 1.24 uIU/mL (0.36-3.74)
[2022-09-20 10:11] LABS: COVID-19 PCR Negative (Negative)
--- NOTE | 2022-09-20 12:22 | PDOC.EEG ---
Neurology EEG EEG: [facility] Department of Neurology INPATIENT EEG REPORT Date of Recordin09/20/22 Interpreting Physician: Dr. Mayi Farnsworth Reason for study: Ms. Borges is admitted after witnessed seizure activity x2 occuring in sleep. Current Medications: Current Medications Acetaminophen (Acetaminophen 325 Mg Tab) 0 mg PO Q4H PRN PRN Al Hydrox/Mg Hydrox/Simethicone (Mylanta Suspension 30 Ml Cup) 30 ml PO Q2H PRN PRN Dimethicone/Zinc Oxide (Eloisa Protect Cream 142 Gm Tube) 0 gm TP PRN PRN Docusate Sodium (Docusate Sodium 100 Mg Cap) 100 mg PO TID PRN PRN Enoxaparin Sodium (Enoxaparin 40 Mg/0.4 Ml Syr) 40 mg SC Q24H CAMMIE IV Miscellaneous Supplies (Iv Access) 1 each IV DIRECTED CAMMIE Levetiracetam (Levetiracetam 500 Mg Tab) 1,000 mg PO BID CAMMIE Magnesium Hydroxide (Milk Of Magnesia 30 Ml Cup) 30 ml PO DAILY PRN PRN Polyethylene Glycol (Polyethylene Glycol 3350 17 Gm Packet) 17 gm PO DAILY PRN PRN PRN Reason: Constipation Sodium Chloride (Normal Saline Flush 10 Ml Syr) 0 ml IVP PRN PRN METHODS: A 21 channel digitized electroencephalogram was performed in the [facility] Med/Surg Floor or ICU. The 10/20 international system of electrode placement was used and bipolar and referential electrode montages were recorded. In addition to EEG the patient was monitored for EKG and lateral/vertical eye movements. Activation procedures of photic stimulation and hyperventilation were performed if applicable. Video was used during activation procedures and during events where applicable. The duration of the recording was 30 minutes. DESCRIPTION OF EEG: The patient was noted to be primarily asleep with some brief wakefulness. During maximal wakefulness a 9-Hz posterior background rhythm was present which was well-modulated, symmetrical, reactive to eye opening, and of moderate voltage. With eye opening the background activity changed to a low voltage mixture of alpha, beta, and occasional theta range frequencies. Faster frequencies were present in the bilateral anterior head regions. There was a normal anterior-posterior voltage gradient. During drowsiness, there was attenuation of the posterior dominant background rhythm and vertex waves. Stage 2 sleep was poorly organized with K-complexes and spindles. There was generalized polymorphic delta and theta slowing seen during wakefulness as well as more focal left hemisphere slowing. There were occasional left temporal (T5>T3) moderate-amplitude, sharp-waves. There were not clearly epileptiform. Activating Procedures: Photic stimulation was performed which produced no posterior driving response. Hyperventilation was not performed.. EKG: EKG revealed sinus bradycardia with heart rate in the low 30s at times. INTERPRETATION: This EEG is abnormal due to: #1. Generalized nonrhythmic slowing. #2. Focal non-rhythmic left hemisphere slowing. #3. Occasional left temporal sharp-waves, trough these were not clearly epileptic. #4. Sinus bradycardia with HR in the low 30s at times. PRIOR EEG: none CLINICAL CORRELATION: The above EEG is consistent with an encephalopathic state, with suggestions of focal left cerebral dysfunction. Consider brain imaging if not already done. There was no definite epileptiform activity, though there was suggestion of by the presence of left temporal sharps. Finally, patient was noted to have significant bradycardia at times during the recording. Mayi Farnsworth MD
[2022-09-20] MEDS: Enoxaparin 40 MG/0.4 ML SYR SC (13:04)
--- NOTE | 2022-09-20 14:30 | HPE_ITS ---
Date of service: 09/20/22 Time of Service: 14:30 Assessment and Plan Assessment and plan (1) Seizure: Status: Acute Assessment and plan: Possible syncope related seizure. No symptoms or evidence for infectious etiology. CT of the head was negative for stroke or tumor or bleed. We will proceed with MRI of the brain. EEG is already been done and reading is pending at this time. Continue with Keppra to 1000 mg twice a day. We will refer the patient back to Dr. Farnsworth for further outpatient work-up. We will recommend that the patient have a polysomnogram to rule out sleep apnea which co uld contribute to both problems including her seizure as well as the sinus bradycardia. Professional time spent interviewing and examining patient, discussion of goals of care with hospital team (care management, nursing and consulting professionals) was 60 minutes. (2) Sinus bradycardia: Status: Acute Assessment and plan: We will monitor overnight check a troponin level serial EKGs. If these are negative will refer her to outpatient cardiology for further work-up including referral to an outside event sales specialist. Consider tilt table test. Upon discharge we will set her up for 30-day cardiac event recorder. As noted above we will refer her for outpatient polysomnogram. History of Present Illness History of Present Illness Chief Complaint: Seizure Narrative: 66-year-old right handed female with no prior history of seizures presented to the emergency department via EMS after family found her to have a what they describe sounds to be like a couple of tonic-clonic seizures. Patient been in her usual state of good health and her family had come in from out of town for holiday with her. Patient had had a couple of drinks yesterday of wine with her meal but otherwise had not excessively imbibed. She is not a regular drinker of alcohol. Her family (son and patient's [id number]) report that at 6:09 am today, the patient's niece (D-in-L, daughter) found her unresponsive, sonorous respirations, and called the family in to check on her. The D-in-L described the patient to be stiff and rigid in her limbs, clenching her teeth w/ her eyes wide open but not able to communicate and she was frothing at the mouth. Her bed clothes were noted to be wet with urine. This went on for a couple minutes and then subsided but then occurred again around 6:17 AM at which point EMS was called. Per ER physician's notes EMS checked her glucose which was normal. Upon arrival to the emergency department her neuro exam was nonfocal and a stat CT of the head was ordered without contrast. This showed no acute abnormalities. Routine labs including CBC, CMP, TSH and urinalysis were relatively unremarkable. Urinalysis did show concentrated urine with a specific gravity greater than 1.030 with 100 mg/dL protein moderate blood negative for leukocyte Estrace or nitrites or bacteria. Chemistry panel did show an anion gap acidosis with anion gap of 16.5 carbon dioxide 20.5. Patient was hydrated with a liter of saline and given an oral dose of Keppra [address] Granados, ED provider, discussed the patient's case with Dr. Mayi Farnsworth, neurologist who had previously seen the patient in October 2019 after series of syncopal spells. Dr. Farnsworth recommended loading dose of Keppra and EEG was ordered. Review of her records reveals that she had had a series of syncopal spells that occurred in 2018, one which led to hospital admission 10/22/10 through 10/24/[address] head, CTA head and neck and labs were unremarkable. Holter was ordered on discharge and was unremarkable. Subsequent holter was done 01/09/21 for another syncope event and again 48 hr holter was unremarkable. Echo 01/19/21 was normal. Patient was followed up in the neurology clinic on 11/23/19 w/ Dr. Farnsworth and after a month free of any syncope patient was cleared for driving. After her cardiac workup it was presumed her syncope spells were vasovagal in nature. Family tells me that patient last had a syncope spell in 2020. Patient has never had seizures in the past. While in the ER patient was noted to have significant sinus bradycardia w/ HR in the 30's however, no evidence for 2nd or 3rd degree AV block nor any 1st degree block for that matter. Serial EKG 's have been done and no evidence for CA or heart block. Patient remained asymptomatic during her bradycardia and her HR would increase on its own. As for symptoms of NESSA, family is unsure as the patient lives alone. Review of Systems All systems reviewed & are unremarkable except as noted in HPI and below Constitutional Constitutional: Reports as per HPI, Denies headache(s) and Denies weakness Eyes Eyes: Denies loss of vision ENT Ears, Nose, Mouth, and Throat: Denies headache(s) Cardiovascular Cardiovascular: Denies chest pain, Denies lightheadedness, Denies radiating jaw, neck or arm pain and Denies dyspnea on exertion Respiratory Respiratory: Denies dyspnea on exertion Gastrointestinal Gastrointestinal: Reports system reviewed and no additional complaints, except as documented Genitourinary Genitourinary: Reports as per HPI Musculoskeletal Musculoskeletal: Reports system reviewed and no additional complaints, except as documented, Denies numbness and Denies tingling Neurologic Neurologic: Reports as per HPI, Denies abnormal speech, Denies headache(s), Denies loss of vision, Denies numbness, Reports convulsions, Denies tingling, Denies paresthesias and Denies weakness Psychiatric Psychiatric: Reports system reviewed and no additional complaints, except as documented Endocrine Endocrine: Reports system reviewed and no additional complaints, except as documented Hematologic/Lymphatic Hematologic/Lymphatic: Reports system reviewed and no additional complaints, except as documented PFSH All Active Problems (Updated 09/20/22 @ 15:02 by Felipe Martinez MD) Sinus bradycardia (Acute) Seizure (Acute) Colon cancer screening (Acute) Medical History Adjustment disorder Anxiety Discharge planning issues DVT prophylaxis Elevated cholesterol (01/27/17) Head injury LOC (loss of consciousness) Medicare annual wellness visit, subsequent Osteoarthritis of both knees (01/16/17) Overweight (01/27/17) Syncope Varicose vein of leg Vasovagal syncope Surgical History Arthroscopy Fracture of Pelvis Meniscus Cleaned Out (L)Knee Replacement of total knee joint right Family History Paternal Grandfather Heart disease Social History Smoking/Tobacco Use Status: Never Smoking risk assessment performed?: Yes Alcohol Intake: current Alcohol Intake frequency: a few times a month Alcohol type: beer Drug use: Daily Substance use type: marijuana Adopted: No Caregiver/Support person: No Foster care: No Household members: none Housing: house Number of Children: 1 Communication Needs: None Education Level: college Details: Bachelor's in Arts Do you need help understanding health information?: Never 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, 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 - [employer] Pets and animals: No Sexually active: No Do you think of yourself as: lesbian/price/homosexual Current gender identity: female What is your relationship status?: How often do you talk on the phone with friends or family?: three or more times per week How often do you get together with friends or relatives?: once per week How often do you attend moravian or oriental orthodox services?: decline to answer Do you belong to any clubs or organized social groups?: yes Panel score (0-1 are the most socially isolated patients): 2 What type of physical activity do you participate in: walking and regular exercise Duration: 45-60 minutes/day Frequency: daily Seatbelt use: always Helmet use: Yes Drive intox or ride w/intox truss driver helper: No Water heater temp set <120 deg: Yes Working smoke detector in home: Yes Fire extinguisher in home: Yes Carbon monox detector in home: Yes Firearms in home: No Do you feel safe at home: Yes Do you feel safe in your relationship?: Yes Meds Allergies and Home Medications Allergies Allergy/AdvReac Type Severity Reaction Status Date / Time Wasp Sting Allergy Severe Anaphylaxis Uncoded 09/20/22 10:51 Home Medications Medication Instructions Recorded Confirmed Type Unknown [No Known Home Meds] 05/08/22 09/20/22 History Exam Narrative Exam Narrative: Older middle-aged white female lying in bed semirecumbent position with her eyes shut but she opens her eyes readily to her name being called. She answers questions appropriately denies any pain headache nausea or vomiting or chest discomfort or dyspnea. She opens her eyes and corrects her family while they are giving her hx HEENT: unremarkable, I did not see any noticeable lip laceration or tongue lacertation. Normal facail mimetic muscle movement; full EOMI, normal visual omeller Neck: Supple nontender no meningismus, no adenopathy, normal carotid pulses, Lungs are clear to auscultation Heart regular rate and rhythm no murmur rub Abdomen soft nontender nondistended normal bowel sounds no organomegaly Extremities without peripheral cyanosis or edema normal range of motion and strength Normal [id number] movement bilaterally. No asterixis, normal hand vault cashier strength normal range of motion. Babinski reflexes absent bilaterally. Results Labs Result diagrams: 09/20/22 07:24 09/20/22 07:24 Labs: Laboratory Results - last 24 hr 09/20/22 09/20/22 09/20/22 07:24 07:24 07:24 WBC 10.09 RBC 4.79 Hgb 15.2 Hct 44.9 MCV 94 MCH 31.7 MCHC 33.9 RDW 11.9 Plt Count 213 MPV 9.3 Immature Gran % 0.7 Neutrophils % 83.2 Lymphocytes % 11.5 Monocytes % 3.8 Eosinophils % 0.6 Basophils % 0.2 Nucleated RBC % 0.0 Absolute Neutrophils 8.40 H Absolute Lymphocytes 1.16 L Absolute Monocytes 0.38 Absolute Eosinophils 0.06 Absolute Basophils 0.02 PT 10.1 INR 1.0 APTT 23.3 Sodium 141 Potassium 3.7 Chloride 104 Carbon Dioxide 20.5 L Anion Gap 16.5 H BUN 11 Creatinine 1.2 H Est GFR (CKD-EPI 2020) 49.92 Glucose 239 H Calcium 8.8 Total Bilirubin 0.5 AST 24 ALT 30 Alkaline Phosphatase 80 Total Protein 7.8 Albumin 4.2 TSH Urine Color Urine Clarity Urine pH Ur Specific [place] Urine Protein Urine Ketones Urine Blood Urine Nitrite Urine Bilirubin Urine Urobilinogen Ur Leukocyte Esterase Urine RBC Urine WBC Ur Epithelial Cells Urine Crystals Urine Bacteria Urine Casts Urine Mucus Ur Culture Indicated? Urine Glucose Urine Opiates Screen Urine Methadone Screen Ur Barbiturates Screen Ur Tricyclics Screen Ur Amphetamines Screen U Benzodiazepines Scrn Urine Cocaine Screen Ur THC Screen Ethyl Alcohol < 3.0 COVID-19 Source SARS-CoV-2 (PCR) 09/20/22 09/20/22 09/20/22 07:24 07:55 07:55 WBC RBC Hgb Hct MCV MCH MCHC RDW Plt Count MPV Immature Gran % Neutrophils % Lymphocytes % Monocytes % Eosinophils % Basophils % Nucleated RBC % Absolute Neutrophils Absolute Lymphocytes Absolute Monocytes Absolute Eosinophils Absolute Basophils PT INR APTT Sodium Potassium Chloride Carbon Dioxide Anion Gap BUN Creatinine Est GFR (CKD-EPI 2020) Glucose Calcium Total Bilirubin AST ALT Alkaline Phosphatase Total Protein Albumin TSH 1.24 Urine Color Yellow Urine Clarity Clear Urine pH 6.0 Ur Specific [place] >= 1.030 H Urine Protein 100 H Urine Ketones Negative Urine Blood Moderate H Urine Nitrite Negative Urine Bilirubin Negative Urine Urobilinogen 0.2 Ur Leukocyte Esterase Negative Urine RBC 3-5 H Urine WBC Negative Ur Epithelial Cells Rare Urine Crystals Negative Urine Bacteria Negative Urine Casts 0-2 Hyaline Urine Mucus Negative Ur Culture Indicated? No Urine Glucose 250 H Urine Opiates Screen Negative Urine Methadone Screen Negative Ur Barbiturates Screen Negative Ur Tricyclics Screen Negative Ur Amphetamines Screen Negative U Benzodiazepines Scrn Negative Urine Cocaine Screen Negative Ur THC Screen Positive A Ethyl Alcohol COVID-19 Source SARS-CoV-2 (PCR) 09/20/22 09:23 WBC RBC Hgb Hct MCV MCH MCHC RDW Plt Count MPV Immature Gran % Neutrophils % Lymphocytes % Monocytes % Eosinophils % Basophils % Nucleated RBC % Absolute Neutrophils Absolute Lymphocytes Absolute Monocytes Absolute Eosinophils Absolute Basophils PT INR APTT Sodium Potassium Chloride Carbon Dioxide Anion Gap BUN Creatinine Est GFR (CKD-EPI 2020) Glucose Calcium Total Bilirubin AST ALT Alkaline Phosphatase Total Protein Albumin TSH Urine Color Urine Clarity Urine pH Ur Specific [place] Urine Protein Urine Ketones Urine Blood Urine Nitrite Urine Bilirubin Urine Urobilinogen Ur Leukocyte Esterase Urine RBC Urine WBC Ur Epithelial Cells Urine Crystals Urine Bacteria Urine Casts Urine Mucus Ur Culture Indicated? Urine Glucose Urine Opiates Screen Urine Methadone Screen Ur Barbiturates Screen Ur Tricyclics Screen Ur Amphetamines Screen U Benzodiazepines Scrn Urine Cocaine Screen Ur THC Screen Ethyl Alcohol COVID-19 Source Nasal/Nares SARS-CoV-2 (PCR) Negative Last Vital Signs Temp 37.3 C 09/20/22 13:28 Pulse 53 L 09/20/22 13:28 Resp 16 09/20/22 13:28 BP 133/83 09/20/22 13:28 Pulse Ox 100 09/20/22 13:28
[2022-09-20 15:18] LABS: Anion Gap 7.8 mmol/L (3-11); BUN 12 mg/dL (7-18); CO2 24.2 mmol/L (21.0-32.0); CREATININE 0.7 mg/dL (0.55-1.02); Calcium 8.2 mg/dL (8.5-10.1); Chloride 102 mmol/L (98-107); Estimated GFR 95.32 (mL/min/1.73m2); Glucose 148 mg/dL (74-106); Potassium 3.6 mmol/L (3.5-5.1); Sodium 134 mmol/L (136-145)
[2022-09-20 15:20] LABS: Troponin I 967 ng/L (<or=60)
--- NOTE | 2022-09-20 15:35 | DI.MRI_ITS ---
Exam(s) MR BRAIN WO EXAM: MR BRAIN WO CLINICAL HISTORY: new onset seizures TECHNIQUE: Multiplanar multisequence MRI of the brain was performed. COMPARISON: No exams were available for comparison FINDINGS: The ventricular system is normal in appearance. There are scattered areas of abnormal signal in periventricular white matter sparing the corpus callo sum, areas of abnormal T2 signal also seen amy. The pattern is consistent with microvascular ischem ic changes.. Coronal T2 weighted images show no specific evidence to suggest the presence of mesial temporal scler osis. The orbital and temporal bone structures appear intact as does the pituitary. Diffusion weighted imaging shows no evidence of infarction. Susceptibility weighted imaging shows no evidence of intracranial hemorrhage. There is normal flow void in the [place] vasculature. IMPRESSION: No evidence of acute intracranial process. DATA REPOSITORY:
--- NOTE | 2022-09-20 16:45 | RT.EKG_ITS ---
APPROVED REPORT Exam: Resting ECG Reason for Exam: elevated troponin Patient Location: I HR:72 bpm ECG Measurements Heart Rate 72 AXIS SC 153 P 33 QRSd 99 QRS -2 QT 440 T 21 QTc 482 Conclusion Sinus rhythm...normal P axis, V-rate 50- 99 Normal Electrocardiogram
[2022-09-20] MEDS: Aspirin 81 MG CHEW 324 MG CH (19:14)
[2022-09-20 19:29] LABS: Troponin I 1026 ng/L (<or=60)
[2022-09-20] MEDS: levETIRAcetam 500 MG TAB 1000 MG PO (19:47)
[2022-09-20] MEDS: Acetaminophen 325 MG TAB PO (19:48)
[2022-09-20] MEDS: Ondansetron 4 MG/2 ML VIAL IVP (20:18)
[2022-09-20] MEDS: Normal Saline Flush 10 ML SYR IVP (20:18)
[2022-09-21] VITALS (7 sets, daily range): BP systolic 116–167; BP diastolic 76–114; PULSE 59–78; RESP 15–20; TEMP 37.2–37.9; O2SAT 96–99
[2022-09-21 00:03] LABS: Bilirubin Negative (Negative); Blood Negative (Negative); Clarity Clear (Clear); Glucose Negative (Negative); Ketones 15 mg/dL (Negative); Leukocyte Esterase Negative (Negative); Nitrite Negative (Negative); Specific Gravity >= 1.030 (1.005-1.025); Urobilinogen 0.2 EU/dL (Up TO 0.2)
[2022-09-21 00:34] LABS: COVID-19 PCR Negative (Negative); Influenza A PCR Negative (Negative); Influenza B PCR Negative (Negative); RSV PCR Negative (Negative)
[2022-09-21 00:35] LABS: Source Nasopharynx
[2022-09-21] MEDS: Acetaminophen 325 MG TAB PO (02:05)
[2022-09-21] MEDS: Normal Saline Flush 10 ML SYR IVP (02:05)
[2022-09-21 06:38] LABS: Troponin I 603 ng/L (<or=60)
[2022-09-21] MEDS: Aspirin 81 MG CHEW CH (09:04)
[2022-09-21] MEDS: levETIRAcetam 500 MG TAB 1000 MG PO (09:04)
[2022-09-21] MEDS: Enoxaparin 40 MG/0.4 ML SYR SC (12:17)
--- NOTE | 2022-09-21 12:29 | DSE_ITS ---
Date of service: 09/21/22 Time of Service: 12:29 DS: Diagnosis Discharge Diagnosis (1) Seizure: Status: Acute Asessment and Plan: New onset seizure, associated w/ sinus bradycardia spells. No evidence for AV block. Patient underwent neurologic workup including EEG (generalized nonrhythmic slowing and focal non-rhythmic left hemisphere slowing w/ occasional left temporal sharp waves that were not clearly epileptic), associated sinus bradycardia w/ HR in the 30's. EEG c/w encephalopathic state w/ suggestion of focal left cerebral dysfunction. On admission non-contrast CT of head did not show any acute intracranial process. Subsequent MRI brain was done and also did not show any acute intracranial process. Patient was begun on Keppra 1000 mg q12h and had no further seizure activity during her hospitalization. She awoke from her post ictal state and was back to her baseline cognitive function. Patient was discharged on Keppra 1000 mg po q12h and referred for follow up w/ Dr. Mayi Farnsworth, neurologist. (2) Sinus bradycardia: Status: Acute Asessment and Plan: 30 day cardiac event recorder was ordered at the time of discharge. Patient wwas advised that she should see a addiction medicine physician for further follow up of her bradycardia. A tick panel was ordered on admission and is pending at the time of her discharge and will need to be followed up. (3) Elevated troponin I level: Status: Acute Asessment and Plan: As part of her admission labs, troponin I levels were checked d/t her bradycardia and she was found to have elevated troponin of 967 that peaked at 1026 before coming down to 603. No further levels were checked. Serial EKG were done and she did not have any ischemic or injury patttern. Upon coming out of her post ictal state, she was asked about any chest pain/pressure or dyspnea and she denied any symptoms. She was advised that she should follow up w/ echocardiogram and stress MPI as outpatient. Because of her sinus bradycardia that seemed to worseng w/ sleep, she was advised to get a polysomnogram to rule out sleep apnea. Stress MPI and echocardiogram were ordered to be done as outpatient Discharge Plan Disposition Patient Disposition: Home Condition: Good Discharge Details Reason For Visit: New Onset Seizure Admit Date/Time: 09/20/22 10:25 Admit Provider: Felipe Martinez Attending Provider: Felipe Martinez Primary Care Provider: Jazmyne Nowak Home Meds and New Rx's Prescriptions: New levetiracetam [Keppra] 1,000 mg tablet 1,000 mg PO Q12H Qty: 60 0RF Discharge Instructions Instructions: Levetiracetam (By mouth), Syncope (DC), Generalized Tonic Clonic Seizures (DC) Additional Instructions: Until you have been cleared by a neurologist, you are advised to not drive a motorized vehicle or plane and to not participate in swimming or any physical sports in which a seizure or loss of consciousness may put your life in jeopardy, this includes but is not limited to skiing, swimming, boating, flying. You may take walks and snow shoe but should be accompanied by an adult in the event that you lose consciousness. You should avioid tub baths. You may shower and take sponge baths. However, do not enter any standing water in which you could go under water in the event of loss of consciousness. You should be referred by your PCP or your neurologist for a sleep study, called a polysomnogram to rule in or rule out sleep apnea as a cause for your bradyarrhythmias (slow heart rates) or as a cause of your seizures. You should have further cardiac workup including cardiac event recorder (30 day) and echocardiogram and a nuclear stress myocardial perfusion study. This will rule out any structural or ischemic cause for your bradycardia. You should be referred to an EP addiction medicine physician to discuss your prior syncope spells and your more recent bradyarrhythmias and seizures associated w/ elevated troponin I levels (heart enzymes). You should follow up w/ Dr. Mayi Farnsworth, your neurologist for further evaluation and treatment of your seizures. She will determine when you may resume driving as well as your other physical activities. Stand Alone Forms: Nursing Discharge Form Referrals: Mayi Farnsworth MD [ [facility] STAFF PHYSICIAN] - (Please call the office on Friday to make an appointment) Jazmyne Nowak NP [Primary Care Provider] - (Please call the office on Friday to be seen in 1-2 weeks) Activity:: see above Equipment/Supplies:: No Equipment Needed Diet:: Normal Diet Discharge Orders Discharge Orders: Discharge Order (Routine); Ordered 09/21/22 Ordered By: Felipe Martinez Other Ambulatory Orders: Cardiac Event Recorder (Routine) Timeframe: 1 Day Facility: [facility] - Location: Respiratory Therapy Ordered By: Felipe HARLEY echocardiogram (Routine) Timeframe: 1 Week Facility: [facility] - Location: DIAGNOSTIC IMAGING DEPT Ordered By: Felipe PEREZ MPI rest & stress grp (Routine) Timeframe: 1 Week Facility: [facility] - Location: DIAGNOSTIC IMAGING Ordered By: Felipe Martinez Discharge Data Discharge Date/Time-TO BE ENTERED AT DEPARTURE: 09/21/22 14:07 DS: Summary Time Spent with Patient providing and/or coordinating discharge services: Greater than 30 minutes Specific discharge activities: Interview/exam of patient; review of discharge instructions, completion of prescriptions/discharge instructions; discussion w/ nursing and CM; documentation of hospital visit Status at Discharge Functional status at discharge: independent ambulation Overall status at discharge: patient is back to baseline Mental Status: mental status grossly normal Speech and Movement: speech and movement normal Mood: congruent mood Affect: normal affect Exam Narrative Exam Narrative: She is alert and oriented person place time circumstance sitting up in her chair talking with her family. She denies any chest pain or dyspnea denies any headaches. She slept well last night. No seizures overnight. Lungs are clear to auscultation Neck is supple nontender normal carotid pulses no bruits no JVD Heart is regular rate and rhythm no appreciable murmur rub or gallop Abdomen soft and nontender Extremities without peripheral cyanosis or edema. Neuro exam grossly intact no focal motor or sensory deficits no facial asymmetry no dysarthric speech. Review of her telemetry was performed with the ICU nurses. Patient was found to be in sinus rhythm to sinus bradycardia range of 56 bpm was her lowest highest was 95 bpm no evidence of heart block. Psych Mental Status: mental status grossly normal Speech and Movement: speech and movement normal Mood: congruent mood Affect: normal affect DS: Data Vitals/I&O Vitals and I&O: Vital Signs Temperature 37.4 C 09/21/22 10:35 Temperature Source Tympanic 09/21/22 10:35 Pulse 59 L 09/21/22 10:35 Pulse Rhythm Regular 09/21/22 02:08 Pulse 31 L 09/20/22 11:40 Respiratory Rate 16 09/21/22 10:35 Respiratory Effort Non-Labored 09/21/22 02:08 Respiratory Depth Normal 09/21/22 02:08 Respiratory Pattern Normal 09/21/22 02:08 Blood Pressure 125/84 09/21/22 10:35 Blood Pressure Mean 72 09/20/22 11:31 Pulse Oximetry 98 09/21/22 10:35 Oxygen Delivery Method Room Air 09/21/22 10:35 Oxygen Flow Rate 0 09/21/22 10:35 Pain Level 0 09/21/22 12:18 Comment 09/21/22 12:18 Intake & Output 09/20/22 09/21/22 09/21/22 23:59 11:59 23:59 Intake Total 550 / 550 Output Total 400 / 400 Balance -400 / 610 550 / 550 Weight 80.7 kg Intake: Oral 550 / 550 Output: Urine 400 / 400 Other: Urine Color Light Ct Yellow Urine Appearance Clear Clear Urine Odor Normal Normal Stool Size Large Stool Characteristics Formed Brown Voiding Methods Bedside Commode Toilet Data Completed and Pending Completed studies during hospitalization [Text1]: Non-contrast CT brain, MRI brain w/o contrast. EEG Pending studies at discharge: Tick panel Labs on day of discharge: Labs from last 24 hours 09/21/22 09/20/22 09/20/22 05:30 23:30 23:25 VBG Lactate Sodium Potassium Chloride Carbon Dioxide Anion Gap BUN Creatinine Est GFR (CKD-EPI 2020) Glucose Calcium Troponin I 603 H* Urine Color Yellow Urine Clarity Clear Urine pH 6.0 Ur Specific [place] >= 1.030 H Urine Protein Negative Urine Ketones 15 H Urine Blood Negative Urine Nitrite Negative Urine Bilirubin Negative Urine Urobilinogen 0.2 Ur Leukocyte Esterase Negative Urine Glucose Negative COVID-19 Source Nasopharynx SARS-CoV-2 (PCR) Negative Influenza Type A (PCR) Negative Influenza Type B (PCR) Negative RSV (PCR) Negative 09/20/22 09/20/22 09/20/22 19:02 14:53 14:53 VBG Lactate 1.0 Sodium 134 L Potassium 3.6 Chloride 102 Carbon Dioxide 24.2 Anion Gap 7.8 BUN 12 Creatinine 0.7 Est GFR (CKD-EPI 2020) 95.32 Glucose 148 H Calcium 8.2 L Troponin I 1026 H* 967 H* Urine Color Urine Clarity Urine pH Ur Specific [place] Urine Protein Urine Ketones Urine Blood Urine Nitrite Urine Bilirubin Urine Urobilinogen Ur Leukocyte Esterase Urine Glucose COVID-19 Source SARS-CoV-2 (PCR) Influenza Type A (PCR) Influenza Type B (PCR) RSV (PCR) 09/20/22 23:30 Urine - Clean Catch Urine Culture - Pending 09/20/22 20:31 Blood Blood Culture - Pending 09/20/22 20:24 Blood Blood Culture - Pending Preliminary micro results at discharge 09/20/22 23:30 Urine Culture - Pending Urine - Clean Catch 09/20/22 20:31 Blood Culture - Pending Blood 09/20/22 20:24 Blood Culture - Pending Blood PFSH All Active Problems Elevated troponin I level (Acute) Sinus bradycardia (Acute) Seizure (Acute) Colon cancer screening (Acute) Medical History Adjustment disorder Anxiety Discharge planning issues DVT prophylaxis Elevated cholesterol (01/27/17) Head injury LOC (loss of consciousness) Medicare annual wellness visit, subsequent Osteoarthritis of both knees (01/16/17) Overweight (01/27/17) Syncope Varicose vein of leg Vasovagal syncope Surgical History Arthroscopy Fracture of Pelvis Meniscus Cleaned Out (L)Knee Replacement of total knee joint right Family History Paternal Grandfather Heart disease Social History Smoking/Tobacco Use Status: Never Smoking risk assessment performed?: Yes Alcohol Intake: current Alcohol Intake frequency: a few times a month Alcohol type: beer Drug use: Daily Substance use type: marijuana Adopted: No Caregiver/Support person: No Foster care: No Household members: none Housing: house Number of Children: 1 Communication Needs: None Education Level: college Details: Bachelor's in Arts Do you need help understanding health information?: Never current occupation: [employer], [employer] Pets and animals: No Sexually active: No Do you think of yourself as: lesbian/price/homosexual Current gender identity: female What is your relationship status?: How often do you talk on the phone with friends or family?: three or more times per week How often do you get together with friends or relatives?: once per week How often do you attend druze or orthodox services?: decline to answer Do you belong to any clubs or organized social groups?: yes Panel score (0-1 are the most socially isolated patients): 2 What type of physical activity do you participate in: walking and regular exercise Duration: 45-60 minutes/day Frequency: daily Seatbelt use: always Helmet use: Yes Drive intox or ride w/intox motorcoach driver: No Water heater temp set <120 deg: Yes Working smoke detector in home: Yes Fire extinguisher in home: Yes Carbon monox detector in home: Yes Firearms in home: No Do you feel safe at home: Yes Do you feel safe in your relationship?: Yes
--- NOTE | 2022-09-21 14:20 | PT.INNT ---
PT Notes Visit Reasons: New Onset Seizure PT orders received, however patient was discharged prior to being evaluated.
[2022-09-22 19:16] LABS: Anaplasma phagocytophilum Negative (Negative); B. miyamotoi PCR Negative (Negative); Babesia divergens/MO-1 Negative (Negative); Babesia duncani Negative (Negative); Babesia microti Negative (Negative); Ehrlichia chaffeensis Negative (Negative); Ehrlichia ewingii/canis Negative (Negative); Ehrlichia muris eauclairensis Negative (Negative)
[2022-09-23 09:48] LABS: Lyme Ab w Rflx to Lyme Confirm Negative (Negative)
--- NOTE | 2022-09-24 08:59 | NUR.NOTE ---
Nursing Note: Accessed patient chart to determine how many EKG orders were in the chart from the ED. There was an outstanding EKG in ordered status. There are no EKG's in the [employer] system that are outstanding. EKG order was deleted.
== END 2022-09-21 14:07 | disposition home or self-care (01) ==
LOC: ER 11:03 → MS 11:05
PROVIDERS: Emergency Medicine; Family Medicine; Admitting Provider Internal Medicine; Emergency Provider Emergency Medicine; PCP Nurse Practitioner; Visit Provider Internal Medicine
DX: R55 Syncope and collapse (principal); R00.1 Bradycardia, unspecified; R32 Unspecified urinary incontinence; R56.9 Unspecified convulsions; R74.8 Abnormal levels of other serum enzymes; I44.4 Left anterior fascicular block; E78.00 Pure hypercholesterolemia, unspecified; F12.90 Cannabis use, unspecified, uncomplicated; Z20.822 Contact with and (suspected) exposure to COVID-19
CPT/HCPCS: 36410; 36415; 36416; 80048; 80053; 80307; 82962; 87040; 87635; 87637; 87798; 93005; 93270; 95819; 96361; 96372; 96374; 99285; J1650; 70450; 70551; 80320; 81003; 81015; 83605; 84443; 84484; 85025; 85610; 85730; 86618; 87086; 93010; 99217; 99220; G0378; J2405

== ENCOUNTER → 2022-09-23 13:46 | Outpatient (BNVA) | payer MEDICARE, SELFPAY | PROVIDERS: PCP Nurse Practitioner; Referring Provider Nurse Practitioner; Visit Provider Psychiatry & Neurology Neurology | DX: R56.9 Unspecified convulsions (principal); R00.1 Bradycardia, unspecified | CPT/HCPCS: 99215 ==

== ENCOUNTER → 2022-09-25 02:32 | Outpatient (CLI) | payer MEDICARE, SELFPAY ==
--- NOTE | 2022-09-25 08:26 | DI.US_ITS ---
APPROVED REPORT EXAM: Comprehensive 2D, Doppler, and color-flow Echocardiogram Patient Location: Out-Patient Philosophy Faculty Member: Cinda Aviles RDCS (AE) Indications: Bradycardia, elevated troponin, syncope Other Information Study Quality: Adequate Conclusion Normal left ventricular wall thickness and chamber size. Estimated ejection fraction is 60%. Wall m otion is normal Normal right ventricular size and systolic function Both atria are normal in size Aortic valve is mildly sclerotic and trileaflet without stenosis or regurgitation Mildly dilated ascending aorta measuring 3.4 cm Wall motion Left Ventricle The left ventricle is normal size. The left ventricular systolic function is normal. The left ventric ular ejection fraction is within the normal range. There is normal left ventricular wall thickness. T here is normal LV segmental wall motion. There is no ventricular septal defect visualized. LVEF is 60 %. Right Ventricle The right ventricle is normal size. The right ventricular systolic function is normal. The RVSP is 21 .7mmHg. Atria The left atrium size is normal. The right atrium size is normal. The interatrial septum is intact wit h no evidence for an atrial septal defect. Aortic Valve The aortic valve is mildly sclerotic There is no aortic valvular stenosis. No aortic regurgitation is present. Mitral Valve The mitral valve is normal in structure. No evidence of mitral valve stenosis. Trace mitral regurgita tion. Tricuspid Valve The tricuspid valve is normal in structure. There is no tricuspid valve stenosis. Trace tricuspid reg urgitation. Pulmonic Valve The pulmonary valve is normal in structure. There is no pulmonic valvular stenosis. There is no pulmo greg valvular regurgitation. Great Vessels The aortic root is normal in size. The ascending aorta is mildly dilated. Aortic arch is normal in ca liber. IVC is normal in size and collapses >50% with inspiration. Pericardium There is no pericardial effusion. 2D Dimensions IVSD d PLAX 0.95 cm F: 0.6-1.0 LV Vol A2C d MOD 89.3 mL LVPW d PLAX 0.96 cm F: 0.6 - 1.0 LV Vol A4C d MOD 77.2 mL LVID d PLAX 4.28 cm F: 3.8 - 5.2 LA vol/ BSA A2C s A-L 25.2 mL/m2 LVDs 2.80 cm F: 2.2 - 3.5 LA vol/ BSA A4C s A-L 22.5 mL/m2 Ao Root d 2.92 cm F: 2.7 - 3.3 LA Vol/ BSA Biplane s A-L 24.6 mL/m2 RA Area A4C 11.49 cm2 LA Area A4C s MOD 15.90 cm2 RA Vol/ BSA A4C s A-L 12.1 mL/m2 LA Area A2C s MOD 17.38 cm2 Ao Asc Diam d 3.40 cm F: 2.3 - 3.1 LV EF A4C MOD 60.2 % LV EF Teichholz 62.6 % LV EF A2C MOD 59.0 % LVEF (Gunderson's) 58.76 % F: 54 - 74 LV EF Biplane MOD 58.8 % LV Volume 62.72 mL F: 46 - 106 SV 48.58 mL LV Volume Index 32.49 mL/m2 F: 29 - 61 SV Index 25.13 mL/m2 LV Vol Biplane MOD 82.7 mL FS 33.55 % M-Mode TAPSE 2.18 cm (M/F) >1.7 LV Diastology MV E' medial 0.099 (>0.07 m/s) E/A Ratio 1.0 LV E/e MED 6.40 (<14) MV E Vmax 0.64 (0.4-1.3 m/s) MV E' lateral 0.097 (>0.1 m/s) MV A Vmax 0.65 (0.4-1.3 m/s) LV E/e LAT 6.55 (<14) MV E/A Ratio 0.92 MV E/E' medial 6.43 MV E/E' lateral 6.59 Aortic Valve LVOT Area 3.09 cm2 AoV Area Vmax 2.64 cm2 LVOT Vmax 1.14 m/s AoV Area/ BSA (Vmax) 1.36 cm2/m2 LVOT Mean Pepe. 0.76 m/s RONY Mean Pepe. 2.51 cm2 LVOT Peak Grad 5.2 mmHg RONY Mean Pepe. Index 1.30 cm2/m2 LVOT Mean Grad 2.6 mmHg LVOT VTI 0.213 m LVOT Diam s 1.95 cm AoV Vmax 1.33 m/s Velocity Ratio 0.85 AoV Mean Pepe. 0.93 m/s AoV Peak Grad 7.1 mmHg LVOT SV 65.66 mL AoV Mean Grad 3.9 mmHg AoV VTI 0.242 m AoV Area VTI 2.71 cm2 AoV Area/ BSA (VTI) 1.40 cm/m2 Mitral Valve MV DT 200 (160-240 msec) MV PHT 58 msec MV Area PHT 3.79 cm2 MV VTI 0.247 m MV Area VTI 2.66 (4.0-6.0 cm2) Pulmonary Valve PV Vmax 0.92 (0.5-1.5 m/s) RVOT Peak Gr. 1.76 mmHg PV Peak Grad 3.4 mmHg RVOT Mean Gr. 0.95 mmHg PV Mean Grad 1.9 mmHg RVOT VTI 0.151 m PV VTI 0.223 m RVOT Vmax 0.66 m/s Tricuspid Valve TR Peak Grad 18.6 mmHg TR Vmax 2.16 m/s RA Pressure 3.00 mmHg RVSP (TR) 21.7 mmHg
== END ==
PROVIDERS: PCP Nurse Practitioner; Visit Provider Internal Medicine
DX: R00.1 Bradycardia, unspecified (principal); R77.8 Other specified abnormalities of plasma proteins; R55 Syncope and collapse
CPT/HCPCS: 93306

== ENCOUNTER 2022-10-29 10:38 | Outpatient (CLI) | payer OTHER, SELFPAY ==
--- NOTE | 2022-10-29 10:54 | W.CARDEVENT ---
Date of service: 10/29/22 Time of Service: 10:54 Cardiac Event Recorder Referring Provider:: Felipe Martinez Indications:: Bradycardia Cardiac Event Note: This is a 30-day cardiac event monitor ordered for bradycardia. Patient was monitored for a total period of 26 days and 7 hours Predominant rhythm was sinus with an average heart rate overall of 90. Minimum heart rate was 57 maximum heart rate with sinus tachycardia was 109 There were several episodes of what appeared to be supraventricular tachycardia with rates ranging from 1 86-200.. The longest SVT run lasted 17 beats and was aberrantly conducted There was no atrial fibrillation, no high-grade AV block, no pauses greater than 3 seconds No apparent patient's symptoms were reported
== END 2022-10-29 10:39 | disposition home or self-care (01) ==
LOC: CARDOPNVT 10:38
PROVIDERS: PCP Nurse Practitioner; Visit Provider Internal Medicine Cardiovascular Disease
DX: I47.1 Supraventricular tachycardia (principal)
CPT/HCPCS: 93272

== ENCOUNTER → 2022-11-05 13:44 | Outpatient (BNVA) | payer OTHER, SELFPAY | PROVIDERS: PCP Nurse Practitioner; Referring Provider Nurse Practitioner; Visit Provider Internal Medicine Cardiovascular Disease | DX: R00.1 Bradycardia, unspecified (principal); R77.8 Other specified abnormalities of plasma proteins; R56.9 Unspecified convulsions | CPT/HCPCS: 93005; 99203; 99214 ==

== ENCOUNTER 2022-11-05 13:46 | Outpatient (CLI) | payer OTHER, SELFPAY ==
--- NOTE | 2022-11-05 13:45 | RT.EKG_ITS ---
APPROVED REPORT Exam: Resting ECG Reason for Exam: cardiac evaluation Patient Location: O HR:97 bpm ECG Measurements Heart Rate 97 AXIS AL 144 P 55 QRSd 89 QRS -34 QT 368 T 54 QTc 468 Conclusion Sinus rhythm...normal P axis, V-rate 50- 99 Left axis deviation...QRS axis (-30,-90) early transition...QRS area>0 in V2
== END 2022-11-05 13:47 | disposition home or self-care (01) ==
LOC: DI.CARD 13:47
PROVIDERS: PCP Nurse Practitioner; Visit Provider Internal Medicine Cardiovascular Disease
DX: R00.1 Bradycardia, unspecified (principal); R56.9 Unspecified convulsions; R77.8 Other specified abnormalities of plasma proteins
CPT/HCPCS: 93010

== ENCOUNTER → 2022-11-06 09:52 | Outpatient (BNVA) | payer OTHER, SELFPAY | PROVIDERS: PCP Nurse Practitioner; Referring Provider Nurse Practitioner; Visit Provider Psychiatry & Neurology Neurology | DX: I10 Essential (primary) hypertension (principal); R56.9 Unspecified convulsions; R00.1 Bradycardia, unspecified | CPT/HCPCS: 99214 ==

== ENCOUNTER → 2022-12-02 10:38 | Outpatient (BNVA) | payer OTHER, SELFPAY | PROVIDERS: PCP Nurse Practitioner; Referring Provider Nurse Practitioner; Visit Provider Psychiatry & Neurology Neurology | DX: R56.9 Unspecified convulsions (principal); R00.1 Bradycardia, unspecified | CPT/HCPCS: 99443 ==